=== PATIENT | female | born 1995 | race Caucasian/White ===

== ENCOUNTER 2016-07-10 15:05 | Inpatient (IN) ==
--- NOTE | 2016-07-10 15:39 | Emergency Department Note ---
Disposition Clinical Impression: Suicidal ideation, Depression, Acute anxiety, UTI (urinary tract infection) Disposition: Admitted As Inpatient Referrals: NO,PCP [Primary Care Provider] - Forms: ED Satisfaction Letter General Adult HPI - General Chief complaint: ED Psychiatric Symptoms Stated complaint: SI Time Seen by Provider: 07/10/16 15:38 Source: patient Limitations: no limitations - History of Present Illness HPI Narrative: 21-year-old female with a history of psychiatric disease and previous self- injurious behavior reports the emergency department complaining of suicidality. She has been feeling increasingly anxious and depressed. The patient has not injured herself in any way in the last several days, there is no history of attempted overdose. She reports she was "living with an older man" and he kept her isolated. There is no history of physical abuse. The patient denies acute chest pain shortness of breath abdominal pain vomiting or diarrhea there has been no trouble walking talking hearing seeing or speaking no back pain neck stiffness rash fever or headache. The patient has a previous psychiatric history and has cut herself before. There is no history of recent cutting. The patient denies acute physical complaints. The patient's mother is here and corroborates the psychiatric history. Onset (ago): day(s) Pain Scale: 0 - Related Data Home Medications Medication Instructions Recorded Confirmed No Known Home Drugs 07/02/16 07/02/16 Allergies Allergy/AdvReac Type Severity Reaction Status Date / Time Amoxicillin Allergy Anaphylaxis Verified 05/12/16 19:37 Penicillins [PCN] Allergy Anaphylaxis Verified 09/28/15 20:52 All systems ED: reviewed and negative except as stated. Past Medical History - Past Medical History Medical history: Reports: asthma, seizures, other Surgical history: Reports: other (Cyst excision) Psychiatric history: Reports: anxiety, bipolar, PTSD, prior suicide attempt, previous psychiatric hospitalization [facility] history: Reports: no [facility] history, other - Social History Smoking Status: Never smoker Smokeless Tobacco Status: No Alcohol use: Reports: occasionally Drug use: Reports: none Physical Exam - General Limitations: no limitations General appearance: alert - Head Head exam: atraumatic, normocephalic, normal inspection - Eye Eye exam: Present: normal appearance, PERRL, EOMI. Absent: miosis, mydriasis - ENT ENT exam: normal exam, normal oropharynx, mucous membranes moist, normal external ear exam - Neck Neck exam: Present: normal inspection, full ROM, trachea midline. Absent: tenderness - Chest Chest inspection: Present: symmetric chest wall rise. Absent: tenderness - Respiratory Respiratory exam: Present: normal lung sounds bilaterally. Absent: respiratory distress - Cardiovascular Cardiovascular exam: Present: regular rate, normal rhythm, normal heart sounds - Abdominal Exam Abdominal exam: Present: soft, Non-Tender. Absent: tenderness, distention, guarding, rebound, rigidity, trauma - Extremities Exam Extremities exam: Present: normal inspection, full ROM, normal capillary refill , other (Lower extremities without evidence of acute trauma for range of motion throughout warm and well perfused. Upper extremities show a full range of motion throughout with evidence of acute trauma however chronic scarring right upper extremity in the forearm region. No acute disease. All extremities are warm and well perfused and showed no evidence of neurovascular or neuromuscular compromise.). Absent: tenderness, pedal edema, joint swelling, calf tenderness - Expanded Lower Extremity Exam Hip/Pelvis exam: Present: full ROM. Absent: tenderness Upper leg exam: Present: full ROM. Absent: tenderness Knee exam: Present: full ROM. Absent: tenderness Lower leg exam: Present: full ROM. Absent: tenderness Ankle exam: Present: full ROM. Absent: tenderness Course Vital Signs Temperature 97.7 F 07/10/16 15:13 Pulse Rate 94 07/10/16 15:13 Respiratory Rate 18 07/10/16 15:13 Blood Pressure 103/64 07/10/16 15:13 O2 Sat by Pulse Oximetry 100 07/10/16 15:13 Temperature 97.7 F 07/10/16 15:13 Pulse Rate 94 07/10/16 15:13 Respiratory Rate 18 07/10/16 15:13 Blood Pressure 103/64 07/10/16 15:13 O2 Sat by Pulse Oximetry 100 07/10/16 15:13 Oxygen Delivery Oxygen Delivery Room Air Medical Decision Making - [facility] Narrative Medical decision making narrative: The patient is apparently suicidal, she has a history of psychiatric disease and describes anxiety and depression. Based on her statements and concerns I have consulted the psychiatric service for evaluation and potential admission. She seems to have a low-grade UTI. Keflex was given by mouth. The psychiatric counselors recommended admission to the psychiatric unit. They request we fill out a pink slip. - Lab Data Lab results reviewed: Yes I reviewed the patient's lab results. Result diagrams: 07/10/16 16:00 07/10/16 16:00 Lab Results 07/10/16 07/10/16 07/10/16 Range/Units 15:50 15:50 16:00 WBC 9.0 (4.3-11.1) K/mcL RBC 4.63 (3.82-4.97) M/mcL Hgb 13.3 (11.5-15.4) g/dL Hct 39.2 (35.3-44.9) % MCV 84.7 (83.0-100.0) fL MCH 28.7 (28.0-33.3) pg MCHC 33.9 (31.6-35.5) g/dL RDW 13.3 (11.5-14.5) % Plt Count 379 (140-400) K/mcL MPV 9.6 (9.4-12.4) fL Immature Gran % 0.8 (0-4) % Seg Neutrophils % 71.9 % Lymphocytes % 23.5 % Monocytes % 2.5 % Eosinophils % 1.0 % Basophils % 0.3 % Neutrophils # 6.5 (1.6-8.9) K/mcL Lymphocytes # 2.1 (0.6-4.6) K/mcL Monocytes # 0.2 (0.0-1.3) K/mcL Eosinophils # 0.1 (0.0-0.6) K/mcL Basophils # 0.0 (0.0-0.2) K/mcL Immature Plt Fraction 2.1 (1.1-6.1) % Sodium (136-145) mEq/L Potassium (3.5-4.5) mEq/L Chloride (98-109) mEq/L Carbon Dioxide (19-29) mEq/L BUN (7-20) mg/dL Creatinine (0.57-1.11) mg/dL Est GFR ( Amer) (> 60) Est GFR (Non-Af Amer) (> 60) BUN/Creatinine Ratio (6-26) Glucose (70-99) mg/dL Calculated Osmolality (280-300) Calcium (8.6-10.8) mg/dL Urine Color Yellow (Yellow) Urine Clarity Cloudy A (Clear) Urine pH 6.5 (5.0-8.0) pH Units Ur Specific [place] 1.006 L (1.010-1.025) Urine Protein Negative (Neg-Trace) mg/dL Urine Glucose (UA) Normal (Normal) mg/dL Urine Ketones Negative (Negative) mg/dL Urine Blood Trace H (Negative) Urine Nitrite Negative (Negative) Urine Bilirubin Negative (Negative) Urine Urobilinogen Normal (Normal) mg/dL Ur Leukocyte Esterase Small H (Negative) Urine Microscopic RBC 5-15 H (0-3) per hpf Urine Microscopic WBC 5-15 H (0-3) per hpf Ur Squamous Epith Cells Many H (None-Few) per lpf Urine Bacteria Few (None-Few) per hpf Hyaline Casts None Seen (None-Few) per lpf Salicylates (15-30) mg/dL Urine Opiates Screen Negative (Gclbyc=165) ng/mL Acetaminophen (10-30) mcg/mL Ur Barbiturates Screen Negative (Hpskvu=201) ng/mL Ur Phencyclidine Scrn Negative (Cutoff=25) ng/mL Ur Amphetamines Screen Negative (Nxeudg=4677) ng/mL U Benzodiazepines Scrn Negative (Ovwfep=992) ng/mL Urine Cocaine Screen Negative (Cutoff= 300) ng/mL U Marijuana (THC) Screen Negative (Cutoff = 50) ng/mL Ethyl Alcohol (0-10) mg/dL 07/10/16 Range/Units 16:00 WBC (4.3-11.1) K/mcL RBC (3.82-4.97) M/mcL Hgb (11.5-15.4) g/dL Hct (35.3-44.9) % MCV (83.0-100.0) fL MCH (28.0-33.3) pg MCHC (31.6-35.5) g/dL RDW (11.5-14.5) % Plt Count (140-400) K/mcL MPV (9.4-12.4) fL Immature Gran % (0-4) % Seg Neutrophils % % Lymphocytes % % Monocytes % % Eosinophils % % Basophils % % Neutrophils # (1.6-8.9) K/mcL Lymphocytes # (0.6-4.6) K/mcL Monocytes # (0.0-1.3) K/mcL Eosinophils # (0.0-0.6) K/mcL Basophils # (0.0-0.2) K/mcL Immature Plt Fraction (1.1-6.1) % Sodium 136 (136-145) mEq/L Potassium 3.7 (3.5-4.5) mEq/L Chloride 109 (98-109) mEq/L Carbon Dioxide 16 L (19-29) mEq/L BUN 7 (7-20) mg/dL Creatinine 0.67 (0.57-1.11) mg/dL Est GFR ( Amer) > 60 (> 60) Est GFR (Non-Af Amer) > 60 (> 60) BUN/Creatinine Ratio 10 (6-26) Glucose 109 H (70-99) mg/dL Calculated Osmolality 281 (280-300) Calcium 9.2 (8.6-10.8) mg/dL Urine Color (Yellow) Urine Clarity (Clear) Urine pH (5.0-8.0) pH Units Ur Specific [place] (1.010-1.025) Urine Protein (Neg-Trace) mg/dL Urine Glucose (UA) (Normal) mg/dL Urine Ketones (Negative) mg/dL Urine Blood (Negative) Urine Nitrite (Negative) Urine Bilirubin (Negative) Urine Urobilinogen (Normal) mg/dL Ur Leukocyte Esterase (Negative) Urine Microscopic RBC (0-3) per hpf Urine Microscopic WBC (0-3) per hpf Ur Squamous Epith Cells (None-Few) per lpf Urine Bacteria (None-Few) per hpf Hyaline Casts (None-Few) per lpf Salicylates < 5.0 L (15-30) mg/dL Urine Opiates Screen (Ksfnqn=755) ng/mL Acetaminophen < 1.0 L (10-30) mcg/mL Ur Barbiturates Screen (Simmin=806) ng/mL Ur Phencyclidine Scrn (Cutoff=25) ng/mL Ur Amphetamines Screen (Qescdj=2407) ng/mL U Benzodiazepines Scrn (Polcly=045) ng/mL Urine Cocaine Screen (Cutoff= 300) ng/mL U Marijuana (THC) Screen (Cutoff = 50) ng/mL Ethyl Alcohol < 10 (0-10) mg/dL
[2016-07-10 16:03] LABS: Bilirubin,Urine Negative (Negative); Blood,Urine Trace (Negative); Clarity,Urine Cloudy (Clear); Color,Urine Yellow (Yellow); Glucose,Urine (UA) Normal (Normal); Ketones,Urine Negative (Negative); Leukocyte Esterase,Urine Small (Negative); Nitrite,Urine Negative (Negative); PH,Urine 6.5 pH Units (5.0-8.0); Protein,Urine Negative (Neg-Trace); Specific Gravity,Urine 1.006 (1.010-1.025); Urobilinogen,Urine Normal (Normal)
[2016-07-10 16:05] LABS: Amphetamine Screen,Urine Negative ng/mL (Cutoff=1000); Barbiturate Screen,Urine Negative ng/mL (Cutoff=200); Benzodiazepines Screen,Urine Negative ng/mL (Cutoff=200); Cannabinoid Screen,Urine Negative ng/mL (Cutoff = 50); Cocaine Screen,Urine Negative ng/mL (Cutoff= 300); Opiate Screen,Urine Negative ng/mL (Cutoff=300); Phencyclidine Screen,Urine Negative ng/mL (Cutoff=25)
[2016-07-10 16:06] LABS: Bacteria,Urine Few per hpf (None-Few); Hyaline Casts,Urine None Seen per lpf (None-Few); Squamous Epithelial Cell,Urine Many per lpf (None-Few)
[2016-07-10 16:07] LABS: Basophils % 0.3 %; Eosinophils # 0.1 K/mcL (0.0-0.6); Hematocrit 39.2 % (35.3-44.9); Hemoglobin 13.3 g/dL (11.5-15.4); Immature Granulocytes % 0.8 % (0-4); Immature Platelets 2.1 % (1.1-6.1); Lymphocytes # 2.1 K/mcL (0.6-4.6); Lymphocytes % 23.5 %; Mean Corpuscular HGB Conc 33.9 g/dL (31.6-35.5); Mean Corpuscular Hemoglobin 28.7 pg (28.0-33.3); Mean Corpuscular Volume 84.7 fL (83.0-100.0); Mean Platelet Volume 9.6 fL (9.4-12.4); Monocytes # 0.2 K/mcL (0.0-1.3); Monocytes % 2.5 %; Neutrophils # 6.5 K/mcL (1.6-8.9); Platelet Count 379 K/mcL (140-400); Red Blood Count 4.63 M/mcL (3.82-4.97); Red Cell Distribution Width 13.3 % (11.5-14.5); Segmented Neutrophils % 71.9 %
[2016-07-10 16:20] LABS: Acetaminophen < 1.0 mcg/mL (10-30); BUN/Creatinine Ratio 10 (6-26); Blood Urea Nitrogen 7 mg/dL (7-20); Calcium 9.2 mg/dL (8.6-10.8); Carbon Dioxide 16 mEq/L (19-29); Chloride 109 mEq/L (98-109); Ethanol < 10 mg/dL (0-10); Glucose 109 mg/dL (70-99); Osmolality,Calculated 281 (280-300); Potassium 3.7 mEq/L (3.5-4.5); Salicylate < 5.0 mg/dL (15-30); Sodium 136 mEq/L (136-145); eGFR For African Americans > 60 (> 60); eGFR For Non-African Americans > 60 (> 60)
[2016-07-10] MEDS ORDERED: cephALEXin 250 MG CAPSULE PO ONE (16:42)
[2016-07-10] MEDS ORDERED: MOM Conc 10 ML UD.LIQ PO PRN (18:43)
[2016-07-10] MEDS ORDERED: Haloperidol Lactate 5 MG/ML VIAL IM PRN (18:43)
[2016-07-10] MEDS ORDERED: *HR* LORazepam 2 MG/ML VIAL IM PRN (18:43)
[2016-07-10] MEDS ORDERED: *HR* LORazepam 1 MG TABLET PO PRN (18:43)
[2016-07-10] MEDS ORDERED: Mag Hydrox/Al Hydrox/Simeth 30 ML UDC PO PRN (18:43)
[2016-07-10] MEDS: Acetaminophen 325 MG TABLET PO PRN (21:47)
[2016-07-10] MEDS: traZODone 50 MG TABLET PO PRN (21:47)
--- NOTE | 2016-07-11 10:06 | Psychiatry History & Physical ---
Date of Encounter: 07/11/16 Time of Encounter: 10:04 History of Present Illness Patient Stated Chief Complaint: suicidal Medicare Admission Attestation: For traditional Medicare patients the provided hospital inpatient services are reasonable and necessary and in the case of services not specified as inpatient -only under 42 CFR 419.22 (n), that they are appropriately provided as inpatient services in accordance 42 CFR 412.3. For Critical Access Hospital the patient may reasonably be expected to be discharged or transferred to a hospital within 96 hours after admission to the Critical Access Hospital. Admitted From: Emergency Dept History of Present Illness: Ms. Ricketts is a 21 year old female Past Med Surg Social Fam HX - Past Medical History Medical history: asthma, seizures, other - Past Psychiatric History Psychiatric history: Reports: no psych history Family psychiatric history: Unknown Family History of Suicide: Unknown - Past Surgical History Surgical History: other - Social History Smoking Status: Never smoker Smokeless Tobacco Status: No Alcohol use: occasionally Drug use: none Medications & Allergies Albuterol Sulfate [Ventolin Hfa] 2 puff IH Q6H PRN 07/10/16 [History] Doxycycline 100 mg PO BID 07/10/16 [History] Topiramate [Topiramate] 50 mg PO HS 07/10/16 [History] Allergies Amoxicillin Allergy (Verified 05/12/16 19:37) Anaphylaxis Penicillins [PCN] Allergy (Verified 09/28/15 20:52) Anaphylaxis Review of Systems Psychiatric: Reports: depression, anxiety, abnormal sleep pattern, suicidal ideation, hopelessness, irritability Mental Status Exam Patient orientation: Yes Person, Yes Time, Yes Place Level of alertness: Alert Patient appearance: Appropriate, Well Groomed, Well-nourished Behavior: calm, cooperative, anxious, withdrawn Psychomotor activity: Slowed Eye contact: Minimal Contact Mood description: Depressed, Anxious, Irritable Affect description: constricted, dysphoric, anxious Speech pattern: Normal rate, Appropriate, Clear, Limited Speech volume: Normal Thought process: Intact Thought content: Yes Suicidal ideation Perceptual disturbances: No Auditory hallucinations, No Visual hallucinations Attention span: Capable of Focused Attention Memory description: Grossly Intact Patient reliability: Reliable Historian Intelligence estimate: Average Judgment: Fair Insight: Partial Results - Vital Signs Vital signs: Temp Pulse Resp BP Pulse Ox 98.1 F 91 20 106/62 100 07/11/16 08:25 07/11/16 08:25 07/11/16 08:25 07/11/16 08:25 07/10/16 15:13 - Labs Labs: Laboratory Last Values WBC 9.0 K/mcL (4.3-11.1) 07/10/16 16:00 RBC 4.63 M/mcL (3.82-4.97) 07/10/16 16:00 Hgb 13.3 g/dL (11.5-15.4) 07/10/16 16:00 Hct 39.2 % (35.3-44.9) 07/10/16 16:00 MCV 84.7 fL (83.0-100.0) 07/10/16 16:00 MCH 28.7 pg (28.0-33.3) 07/10/16 16:00 MCHC 33.9 g/dL (31.6-35.5) 07/10/16 16:00 RDW 13.3 % (11.5-14.5) 07/10/16 16:00 Plt Count 379 K/mcL (140-400) 07/10/16 16:00 MPV 9.6 fL (9.4-12.4) 07/10/16 16:00 Immature Gran % 0.8 % (0-4) 07/10/16 16:00 Seg Neutrophils % 71.9 % 07/10/16 16:00 Lymphocytes % 23.5 % 07/10/16 16:00 Monocytes % 2.5 % 07/10/16 16:00 Eosinophils % 1.0 % 07/10/16 16:00 Basophils % 0.3 % 07/10/16 16:00 Neutrophils # 6.5 K/mcL (1.6-8.9) 07/10/16 16:00 Lymphocytes # 2.1 K/mcL (0.6-4.6) 07/10/16 16:00 Monocytes # 0.2 K/mcL (0.0-1.3) 07/10/16 16:00 Eosinophils # 0.1 K/mcL (0.0-0.6) 07/10/16 16:00 Basophils # 0.0 K/mcL (0.0-0.2) 07/10/16 16:00 Immature Plt Fraction 2.1 % (1.1-6.1) 07/10/16 16:00 Sodium 136 mEq/L (136-145) 07/10/16 16:00 Potassium 3.7 mEq/L (3.5-4.5) 07/10/16 16:00 Chloride 109 mEq/L (98-109) 07/10/16 16:00 Carbon Dioxide 16 mEq/L (19-29) L 07/10/16 16:00 BUN 7 mg/dL (7-20) 07/10/16 16:00 Creatinine 0.67 mg/dL (0.57-1.11) 07/10/16 16:00 Est GFR ( Amer) > 60 (> 60) 07/10/16 16:00 Est GFR (Non-Af Amer) > 60 (> 60) 07/10/16 16:00 BUN/Creatinine Ratio 10 (6-26) 07/10/16 16:00 Glucose 109 mg/dL (70-99) H 07/10/16 16:00 Calculated Osmolality 281 (280-300) 07/10/16 16:00 Calcium 9.2 mg/dL (8.6-10.8) 07/10/16 16:00 Urine Color Yellow (Yellow) 07/10/16 15:50 Urine Clarity Cloudy (Clear) A 07/10/16 15:50 Urine pH 6.5 pH Units (5.0-8.0) 07/10/16 15:50 Ur Specific [place] 1.006 (1.010-1.025) L 07/10/16 15:50 Urine Protein Negative mg/dL (Neg-Trace) 07/10/16 15:50 Urine Glucose (UA) Normal mg/dL (Normal) 07/10/16 15:50 Urine Ketones Negative mg/dL (Negative) 07/10/16 15:50 Urine Blood Trace (Negative) H 07/10/16 15:50 Urine Nitrite Negative (Negative) 07/10/16 15:50 Urine Bilirubin Negative (Negative) 07/10/16 15:50 Urine Urobilinogen Normal mg/dL (Normal) 07/10/16 15:50 Ur Leukocyte Esterase Small (Negative) H 07/10/16 15:50 Urine Microscopic RBC 5-15 per hpf (0-3) H 07/10/16 15:50 Urine Microscopic WBC 5-15 per hpf (0-3) H 07/10/16 15:50 Ur Squamous Epith Cells Many per lpf (None-Few) H 07/10/16 15:50 Urine Bacteria Few per hpf (None-Few) 07/10/16 15:50 Hyaline Casts None Seen per lpf (None-Few) 07/10/16 15:50 Salicylates < 5.0 mg/dL (15-30) L 07/10/16 16:00 Urine Opiates Screen Negative ng/mL (Xeoqbq=985) 07/10/16 15:50 Acetaminophen < 1.0 mcg/mL (10-30) L 07/10/16 16:00 Ur Barbiturates Screen Negative ng/mL (Unayla=748) 07/10/16 15:50 Ur Phencyclidine Scrn Negative ng/mL (Cutoff=25) 07/10/16 15:50 Ur Amphetamines Screen Negative ng/mL (Ouizms=0521) 07/10/16 15:50 U Benzodiazepines Scrn Negative ng/mL (Iajfmu=066) 07/10/16 15:50 Urine Cocaine Screen Negative ng/mL (Cutoff= 300) 07/10/16 15:50 U Marijuana (THC) Screen Negative ng/mL (Cutoff = 50) 07/10/16 15:50 Ethyl Alcohol < 10 mg/dL (0-10) 07/10/16 16:00 Assessment and Plan (1) Depression Current visit: Yes Status: Acute Plan: Admit inpatient for safety and stabilization, Close observation, Suicide Precautions per unit protocol, Encourage participation in unit milieu, Group Therapy, Monitor sleep, Monitor appetite Risks, benefits, side effects, alternatives discussed w/pt: Yes Patient agreeable to treatment: Yes Estimated Length of Stay (Days): 5 Qualifiers: Depression Type: major depressive disorder Major depression recurrence: recurrent Active/Remission status: currently active Major depression episode severity: moderate Qualified Code(s): F33.1 - Major depressive disorder, recurrent, moderate
[2016-07-11] MEDS: Venlafaxine XR (24 HR) 75 MG CAP.ER.24H PO SCH (10:39)
[2016-07-11] MEDS: Acetaminophen 325 MG TABLET PO PRN (11:33)
[2016-07-11] MEDS ORDERED: *HR* LORazepam 1 MG TABLET PO PRN (12:23)
[2016-07-11] MEDS: levETIRAcetam 250 MG TABLET PO SCH ×2 (12:36→21:51)
[2016-07-11] MEDS: Topiramate 25 MG TABLET PO SCH (21:51)
[2016-07-11] MEDS: traZODone 50 MG TABLET PO PRN (21:51)
[2016-07-11] MEDS: *HR* LORazepam 1 MG TABLET PO PRN (23:11)
[2016-07-12] MEDS: levETIRAcetam 250 MG TABLET PO SCH ×2 (08:54→21:33)
[2016-07-12] MEDS: Venlafaxine XR (24 HR) 75 MG CAP.ER.24H PO SCH (08:55)
--- NOTE | 2016-07-12 12:57 | Psychiatry Progress Note ---
Date of Encounter: 07/12/16 Time of Encounter: 12:53 Subjective Interval history: Patient is here for follow-up. Nursing staff reported that she denying suicidal ideation or sleep improved she still complaining of anxiety and she used lorazepam was "results. She is participating in groups and activities and her medication were reviewed and restarted especially seizure medication. She is more optimistic affect still restricted she is asking question about medication and showing interest in treatment. Review of Systems Psychiatric: Reports: depression, anxiety, abnormal sleep pattern, irritability Objective: Exam Patient orientation: Yes Person, Yes Time, Yes Place Level of alertness: Alert Patient appearance: Appropriate, Well Groomed, Well-nourished Behavior: calm, cooperative, anxious, withdrawn Psychomotor activity: Slowed Eye contact: Maintains Eye Contact Mood description: Depressed, Anxious, Irritable Affect description: constricted, dysphoric, anxious Speech pattern: Normal rate, Appropriate, Clear, Limited Speech volume: Normal Thought process: Intact Thought content: No Suicidal ideation Perceptual disturbances: No Auditory hallucinations, No Visual hallucinations Judgment: Fair Insight: Partial Results - Vital Signs Vital Signs: Temp Pulse Resp BP Pulse Ox 98.8 F 80 16 106/63 100 07/12/16 08:44 07/12/16 08:44 07/12/16 08:44 07/12/16 08:44 07/10/16 15:13 Assessment and Plan (1) Depression Current visit: Yes Status: Acute Risks, benefits, side effects, alternatives discussed w/pt: Yes Patient agreeable to treatment: Yes Qualifiers: Depression Type: major depressive disorder Major depression recurrence: recurrent Active/Remission status: currently active Major depression episode severity: moderate Qualified Code(s): F33.1 - Major depressive disorder, recurrent, moderate (2) Suicidal ideation Current visit: Yes Status: Acute Plan: Continue hospitalization, Close observation, Suicide Precautions per unit protocol, Encourage participation in unit milieu, Group Therapy, Monitor sleep, Monitor appetite Risks, benefits, side effects, alternatives discussed w/pt: Yes Patient agreeable to treatment: Yes Consult Discharge Plan - Plan Referrals: NO,PCP [Primary Care Provider] -
[2016-07-12] MEDS: *HR* LORazepam 1 MG TABLET PO PRN ×2 (13:23→21:33)
[2016-07-12] MEDS: Topiramate 25 MG TABLET PO SCH (21:32)
[2016-07-12] MEDS: traZODone 50 MG TABLET PO PRN (21:33)
[2016-07-13] MEDS: levETIRAcetam 250 MG TABLET PO SCH ×2 (08:27→22:07)
[2016-07-13] MEDS: Venlafaxine XR (24 HR) 75 MG CAP.ER.24H PO SCH (08:27)
--- NOTE | 2016-07-13 09:49 | Psychiatry Progress Note ---
Date of Encounter: 07/13/16 Time of Encounter: 09:43 Subjective Interval history: Patient is here for follow-up. Nursing staff reports she is taking her medication and ask for lorazepam for anxiety was good response to socializing with other patients and participating in groups she is denying suicidal ideation and tolerating medications without any complaints. Review of Systems Psychiatric: Reports: depression, anxiety, abnormal sleep pattern, visual hallucinations, irritability Objective: Exam Patient orientation: Yes Person, Yes Time, Yes Place Level of alertness: Alert Patient appearance: Appropriate, Well Groomed, Well-nourished Behavior: calm, cooperative, anxious, tearful, withdrawn Psychomotor activity: Slowed Eye contact: Maintains Eye Contact Mood description: Depressed, Anxious, Irritable Affect description: constricted, dysphoric, anxious Speech pattern: Normal rate, Appropriate, Clear, Limited Speech volume: Normal Thought process: Intact Thought content: No Suicidal ideation Perceptual disturbances: No Auditory hallucinations, No Visual hallucinations Judgment: Fair Insight: Partial Results - Vital Signs Vital Signs: Temp Pulse Resp BP Pulse Ox 98 F 103 18 109/72 100 07/13/16 08:23 07/13/16 08:23 07/13/16 08:23 07/13/16 08:23 07/10/16 15:13 Assessment and Plan (1) Depression Current visit: Yes Status: Acute Plan: Continue hospitalization, Close observation, Suicide Precautions per unit protocol, Encourage participation in unit milieu, Group Therapy, Monitor sleep, Monitor appetite Risks, benefits, side effects, alternatives discussed w/pt: Yes Patient agreeable to treatment: Yes Qualifiers: Depression Type: major depressive disorder Major depression recurrence: recurrent Active/Remission status: currently active Major depression episode severity: moderate Qualified Code(s): F33.1 - Major depressive disorder, recurrent, moderate (2) Suicidal ideation Current visit: Yes Status: Acute Plan: Continue hospitalization, Close observation, Suicide Precautions per unit protocol, Encourage participation in unit milieu, Group Therapy, Monitor sleep, Monitor appetite Risks, benefits, side effects, alternatives discussed w/pt: Yes Patient agreeable to treatment: Yes Consult Discharge Plan - Plan Referrals: [facility] [Outside] - 08/09/16 2:00 pm (The above appointment is with,Dr. James, psychiatric prescriber. Office staff will contact you directly to schedule your intake appointment for counseling and case management services. Please arrive 15 minutes early for your psychiatric prescriber appointment to complete paperwork. You may contact the office regularly to check for cancellations that may allow you to be seen sooner by the psychiatric prescriber.)
[2016-07-13] MEDS: *HR* LORazepam 1 MG TABLET PO PRN ×2 (10:25→22:57)
[2016-07-13] MEDS: risperiDONE 0.25 MG TABLET PO SCH (10:25)
[2016-07-13] MEDS: traZODone 50 MG TABLET PO PRN (22:08)
[2016-07-13] MEDS: Topiramate 25 MG TABLET PO SCH (22:08)
[2016-07-14] MEDS: risperiDONE 0.25 MG TABLET PO SCH (08:50)
[2016-07-14] MEDS: Venlafaxine XR (24 HR) 75 MG CAP.ER.24H PO SCH (08:50)
[2016-07-14] MEDS: levETIRAcetam 250 MG TABLET PO SCH ×2 (08:50→21:00)
--- NOTE | 2016-07-14 11:42 | Psychiatry Progress Note ---
Date of Encounter: 07/14/16 Time of Encounter: 11:38 Subjective Interval history: Patient is here for follow-up. She suffered patient is compliant with medication she is socializing with patient she reports her sleep improved after adding risperidone but continued to report having dreams or nightmares or flashbacks. She is denying any suicidal ideation and continued to complain of anxiety and demand medication for.. Discussed was her increasing his Risperdal to 1 mg at bedtime to address her nightmares or flashbacks she is agreeable and we will continue to monitor her response. Review of Systems Psychiatric: Reports: depression, anxiety, abnormal sleep pattern, visual hallucinations, irritability Objective: Exam Patient orientation: Yes Person, Yes Time, Yes Place Level of alertness: Alert Patient appearance: Appropriate, Well Groomed, Well-nourished Behavior: calm, cooperative, anxious, tearful, withdrawn Psychomotor activity: Slowed Eye contact: Maintains Eye Contact Mood description: Depressed, Anxious, Irritable Affect description: constricted, dysphoric, anxious Speech pattern: Normal rate, Appropriate, Clear, Limited Speech volume: Normal Thought process: Intact Thought content: No Suicidal ideation Perceptual disturbances: No Auditory hallucinations, Yes Visual hallucinations Judgment: Fair Insight: Partial Results - Vital Signs Vital Signs: Temp Pulse Resp BP Pulse Ox 98.6 F 90 16 108/72 100 07/13/16 20:48 07/13/16 20:48 07/13/16 20:48 07/13/16 20:48 07/10/16 15:13 Assessment and Plan (1) Depression Current visit: Yes Status: Acute Plan: Continue hospitalization, Close observation, Suicide Precautions per unit protocol, Encourage participation in unit milieu, Group Therapy, Monitor sleep, Monitor appetite Additional Plan: We will increase Risperdal to 1 mg at bedtime. Risks, benefits, side effects, alternatives discussed w/pt: Yes Patient agreeable to treatment: Yes Qualifiers: Depression Type: major depressive disorder Major depression recurrence: recurrent Active/Remission status: currently active Major depression episode severity: moderate Qualified Code(s): F33.1 - Major depressive disorder, recurrent, moderate (2) Suicidal ideation Current visit: Yes Status: Acute Plan: Continue hospitalization, Close observation, Suicide Precautions per unit protocol, Encourage participation in unit milieu, Group Therapy, Monitor sleep, Monitor appetite Risks, benefits, side effects, alternatives discussed w/pt: Yes Patient agreeable to treatment: Yes Consult Discharge Plan - Plan Referrals: [facility] [Outside] - 08/09/16 2:00 pm (The above appointment is with, Dr. James, psychiatric prescriber. Office staff will contact you directly to schedule your intake appointment for counseling and case management services. Please arrive 15 minutes early for your psychiatric prescriber appointment to complete paperwork. You may contact the office regularly to check for cancellations that may allow you to be seen sooner by the psychiatric prescriber.)
[2016-07-14] MEDS: traZODone 50 MG TABLET PO PRN (21:01)
[2016-07-14] MEDS: risperiDONE 1 MG TABLET PO SCH (21:01)
[2016-07-14] MEDS: Topiramate 25 MG TABLET PO SCH (21:01)
[2016-07-15] MEDS: levETIRAcetam 250 MG TABLET PO SCH ×2 (08:19→20:40)
[2016-07-15] MEDS: Venlafaxine XR (24 HR) 75 MG CAP.ER.24H PO SCH (08:19)
[2016-07-15] MEDS: risperiDONE 0.25 MG TABLET PO SCH (08:19)
--- NOTE | 2016-07-15 12:39 | Psychiatry Progress Note ---
Date of Encounter: 07/15/16 Time of Encounter: 12:37 Subjective Interval history: Patient is here for follow-up. Nursing staff report patient is participating in activities and denying suicidal ideation compliant with medication. Discharge plans are ongoing and patient is trying to choose best option. She reports sleep improving and less nightmares. No seizure activity were reported. Review of Systems Psychiatric: Reports: depression, anxiety, abnormal sleep pattern, visual hallucinations Objective: Exam Patient orientation: Yes Person, Yes Time, Yes Place Level of alertness: Alert Patient appearance: Appropriate, Well Groomed, Well-nourished Behavior: calm, cooperative, anxious, tearful, withdrawn Psychomotor activity: Normal Eye contact: Maintains Eye Contact Mood description: Depressed, Anxious, Irritable Affect description: constricted, dysphoric, anxious Speech pattern: Normal rate, Appropriate, Clear, Limited Speech volume: Normal Thought process: Intact Thought content: No Suicidal ideation Perceptual disturbances: No Auditory hallucinations, Yes Visual hallucinations Judgment: Fair Insight: Partial Results - Vital Signs Vital Signs: Temp Pulse Resp BP Pulse Ox 98.0 F 83 16 95/57 100 07/15/16 09:00 07/15/16 09:00 07/15/16 09:00 07/15/16 09:00 07/10/16 15:13 Assessment and Plan (1) Depression Current visit: Yes Status: Acute Plan: Continue hospitalization, Close observation, Suicide Precautions per unit protocol, Encourage participation in unit milieu, Group Therapy, Monitor sleep, Monitor appetite Risks, benefits, side effects, alternatives discussed w/pt: Yes Patient agreeable to treatment: Yes Qualifiers: Depression Type: major depressive disorder Major depression recurrence: recurrent Active/Remission status: currently active Major depression episode severity: moderate Qualified Code(s): F33.1 - Major depressive disorder, recurrent, moderate (2) Suicidal ideation Current visit: Yes Status: Acute Plan: Continue hospitalization, Close observation, Suicide Precautions per unit protocol, Encourage participation in unit milieu, Group Therapy, Monitor sleep, Monitor appetite Risks, benefits, side effects, alternatives discussed w/pt: Yes Patient agreeable to treatment: Yes Consult Discharge Plan - Plan Referrals: [facility] [Outside] - 08/09/16 2:00 pm (Your counselor, Berenice , will contact you directly after to discharge to set your next appointment. The above appointment is with, Dr. James, psychiatric prescriber. Please arrive 15 minutes early for your psychiatric prescriber appointment to complete paperwork. You may contact the office regularly to check for cancellations that may allow you to be seen sooner by the psychiatric prescriber.)
[2016-07-15] MEDS: Topiramate 25 MG TABLET PO SCH (20:39)
[2016-07-15] MEDS: risperiDONE 1 MG TABLET PO SCH (20:40)
[2016-07-15] MEDS: traZODone 50 MG TABLET PO PRN (20:40)
[2016-07-16] MEDS: risperiDONE 0.25 MG TABLET PO SCH (08:09)
[2016-07-16] MEDS: levETIRAcetam 250 MG TABLET PO SCH (08:09)
[2016-07-16] MEDS: Venlafaxine XR (24 HR) 75 MG CAP.ER.24H PO SCH (08:10)
[2016-07-16] MEDS: Acetaminophen 325 MG TABLET PO PRN (08:10)
[2016-07-16 08:13] VITALS: BP 115/71
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
== END 2016-07-16 10:44 | disposition home or self-care (01) | DRG 751 ==
LOC: EMEROO 15:05 → 1ANU 18:40
PROVIDERS: ADMIT Psychiatry & Neurology Psychiatry; ATTEND Psychiatry & Neurology Psychiatry

== ENCOUNTER 2016-08-09 16:37 | Inpatient (IN) ==
--- NOTE | 2016-08-09 16:48 | Emergency Department Note ---
Disposition Clinical Impression: Psychiatric disorder Disposition: Admitted As Inpatient Condition: Fair General Adult HPI - General Chief complaint: ED Psychiatric Symptoms Stated complaint: SI attempt Time Seen by Provider: 08/09/16 16:44 - Related Data Home Medications Medication Instructions Recorded Confirmed Albuterol Sulfate [Ventolin Hfa] 2 puff IH Q4H PRN 07/10/16 08/09/16 Doxycycline 100 mg PO BID 07/10/16 08/09/16 ClonazePAM [Klonopin] 0.5 mg PO TID 08/09/16 08/09/16 Hydroxyzine HCl 50 mg PO Q8H PRN 08/09/16 08/09/16 LevETIRAcetam [Keppra] 500 mg PO BID 08/09/16 08/09/16 Mirtazapine [Remeron] 15 mg PO HS 08/09/16 08/09/16 Mupirocin [Bactroban Oint] 1 appl TP TID 08/09/16 08/09/16 Phenytoin ER [Dilantin ER] 100 mg PO TID 08/09/16 08/09/16 Previous Rx's Medication Instructions Recorded RisperiDONE [RisperDAL] 1 mg PO HS #30 tablet 07/16/16 Topiramate 50 mg PO HS #30 tablet 07/16/16 TraZODone 50 mg PO HS PRN #30 tablet 07/16/16 Venlafaxine XR (24 HR) [Effexor XR] 75 mg PO DAILY #30 cap.er.24h 07/16/16 Allergies Allergy/AdvReac Type Severity Reaction Status Date / Time Amoxicillin Allergy Anaphylaxis Verified 05/12/16 19:37 Penicillins [PCN] Allergy Anaphylaxis Verified 09/28/15 20:52 Past Medical History - Past Medical History Medical history: Reports: asthma, seizures, other Surgical history: Reports: other Psychiatric history: Reports: no psych history 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 - Social History Smoking Status: Never smoker Smokeless Tobacco Status: No Alcohol use: Reports: occasionally Drug use: Reports: none Course Vital Signs Temperature 98.4 F 08/09/16 16:47 Pulse Rate 96 08/09/16 16:47 Respiratory Rate 16 08/09/16 16:47 Blood Pressure 121/80 08/09/16 16:47 O2 Sat by Pulse Oximetry 99 08/09/16 16:47 Temperature 98.4 F 08/09/16 21:00 Pulse Rate 98 08/09/16 21:00 Respiratory Rate 16 08/09/16 21:00 Blood Pressure 141/104 08/09/16 21:00 O2 Sat by Pulse Oximetry 100 08/09/16 18:02 Oxygen Delivery Oxygen Delivery Room Air Medical Decision Making - Lab Data Result diagrams: 08/09/16 17:10 08/09/16 17:10 Lab Results 08/09/16 08/09/16 08/09/16 Range/Units 16:58 16:58 17:10 WBC 12.2 H (4.3-11.1) K/mcL RBC 4.55 (3.82-4.97) M/mcL Hgb 13.1 (11.5-15.4) g/dL Hct 38.7 (35.3-44.9) % MCV 85.1 (83.0-100.0) fL MCH 28.8 (28.0-33.3) pg MCHC 33.9 (31.6-35.5) g/dL RDW 14.0 (11.5-14.5) % Plt Count 384 (140-400) K/mcL MPV 8.9 L (9.4-12.4) fL Immature Gran % 0.7 (0-4) % Seg Neutrophils % 62.3 % Lymphocytes % 25.0 % Monocytes % 3.0 % Eosinophils % 8.5 % Basophils % 0.5 % Neutrophils # 7.6 (1.6-8.9) K/mcL Lymphocytes # 3.0 (0.6-4.6) K/mcL Monocytes # 0.4 (0.0-1.3) K/mcL Eosinophils # 1.0 H (0.0-0.6) K/mcL Basophils # 0.1 (0.0-0.2) K/mcL Sodium (136-145) mEq/L Potassium (3.5-4.5) mEq/L Chloride (98-109) mEq/L Carbon Dioxide (19-29) mEq/L BUN (7-20) mg/dL Creatinine (0.57-1.11) mg/dL Est GFR ( Amer) (> 60) Est GFR (Non-Af Amer) (> 60) BUN/Creatinine Ratio (6-26) Glucose (70-99) mg/dL Calculated Osmolality (280-300) Calcium (8.6-10.8) mg/dL Total Bilirubin (0.2-1.2) mg/dL Direct Bilirubin (0.0-0.5) mg/dL Indirect Bilirubin (0.0-1.2) mg/dL AST (5-34) Units/L ALT (0-55) Units/L Alkaline Phosphatase (38-126) Units/L Serum Total Protein (6.0-8.3) g/dL Albumin (3.5-5.0) g/dL Globulin (2.4-3.5) g/dL Albumin/Globulin Ratio (1.1-2.2) Urine Test Negative (Negative) Salicylates (15-30) mg/dL Urine Opiates Screen Negative (Wahavh=507) ng/mL Acetaminophen (10-30) mcg/mL Ur Barbiturates Screen Negative (Jgvlwd=272) ng/mL Ur Phencyclidine Scrn Negative (Cutoff=25) ng/mL Ur Amphetamines Screen Negative (Dgspfm=9565) ng/mL U Benzodiazepines Scrn Negative (Usuwlq=461) ng/mL Urine Cocaine Screen Negative (Cutoff= 300) ng/mL U Marijuana (THC) Screen Negative (Cutoff = 50) ng/mL Ethyl Alcohol (0-10) mg/dL 08/09/16 Range/Units 17:10 WBC (4.3-11.1) K/mcL RBC (3.82-4.97) M/mcL Hgb (11.5-15.4) g/dL Hct (35.3-44.9) % MCV (83.0-100.0) fL MCH (28.0-33.3) pg MCHC (31.6-35.5) g/dL RDW (11.5-14.5) % Plt Count (140-400) K/mcL MPV (9.4-12.4) fL Immature Gran % (0-4) % Seg Neutrophils % % Lymphocytes % % Monocytes % % Eosinophils % % Basophils % % Neutrophils # (1.6-8.9) K/mcL Lymphocytes # (0.6-4.6) K/mcL Monocytes # (0.0-1.3) K/mcL Eosinophils # (0.0-0.6) K/mcL Basophils # (0.0-0.2) K/mcL Sodium 139 (136-145) mEq/L Potassium 4.2 (3.5-4.5) mEq/L Chloride 111 H (98-109) mEq/L Carbon Dioxide 19 (19-29) mEq/L BUN 6 L (7-20) mg/dL Creatinine 0.58 (0.57-1.11) mg/dL Est GFR ( Amer) > 60 (> 60) Est GFR (Non-Af Amer) > 60 (> 60) BUN/Creatinine Ratio 10 (6-26) Glucose 86 (70-99) mg/dL Calculated Osmolality 285 (280-300) Calcium 9.1 (8.6-10.8) mg/dL Total Bilirubin 0.1 L (0.2-1.2) mg/dL Direct Bilirubin 0.1 (0.0-0.5) mg/dL Indirect Bilirubin 0.0 (0.0-1.2) mg/dL AST 18 (5-34) Units/L ALT 21 (0-55) Units/L Alkaline Phosphatase 109 (38-126) Units/L Serum Total Protein 7.3 (6.0-8.3) g/dL Albumin 3.5 (3.5-5.0) g/dL Globulin 3.8 H (2.4-3.5) g/dL Albumin/Globulin Ratio 0.9 L (1.1-2.2) Urine Test (Negative) Salicylates < 5.0 L (15-30) mg/dL Urine Opiates Screen (Gkakzw=845) ng/mL Acetaminophen < 1.0 L (10-30) mcg/mL Ur Barbiturates Screen (Cgputv=978) ng/mL Ur Phencyclidine Scrn (Cutoff=25) ng/mL Ur Amphetamines Screen (Gkdlni=3630) ng/mL U Benzodiazepines Scrn (Tmkpym=138) ng/mL Urine Cocaine Screen (Cutoff= 300) ng/mL U Marijuana (THC) Screen (Cutoff = 50) ng/mL Ethyl Alcohol < 10 (0-10) mg/dL Attestation Statement - Attestation Attestation: I examined this patient and my medical decision-making was reviewed with the PRODUCT LEAD/PA/Advanced Practice Nurse/Resident Physician. I agree with the documented findings, disposition and treatment plan as described except to the extent set forth below. Face to face time provided Patient feels suicidal. She has a history of psychiatric disease. Appears physically in no acute distress. We will attempt to clear medically for behavioral evaluation 18:00: Patient admitted to ingesting approximately 30 tablets of Neurontin- milligrams unknown. Medication did not belong to her. She vomited up the tablets. Ingestion was approximately 4 hours ago. She remains a symptomatically. I did speak with poison control center who was agreeable that the patient can be cleared medically for behavioral evaluation. This information was conveyed to the behavioral consultants
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
[2016-08-09 17:19] LABS: Basophils # 0.1 K/mcL (0.0-0.2); Basophils % 0.5 %; Eosinophils % 8.5 %; Hematocrit 38.7 % (35.3-44.9); Hemoglobin 13.1 g/dL (11.5-15.4); Immature Granulocytes % 0.7 % (0-4); Mean Corpuscular HGB Conc 33.9 g/dL (31.6-35.5); Mean Corpuscular Hemoglobin 28.8 pg (28.0-33.3); Mean Corpuscular Volume 85.1 fL (83.0-100.0); Mean Platelet Volume 8.9 fL (9.4-12.4); Monocytes # 0.4 K/mcL (0.0-1.3); Neutrophils # 7.6 K/mcL (1.6-8.9); Platelet Count 384 K/mcL (140-400); Red Blood Count 4.55 M/mcL (3.82-4.97); Segmented Neutrophils % 62.3 %
[2016-08-09 17:28] LABS: Amphetamine Screen,Urine Negative ng/mL (Cutoff=1000); Barbiturate Screen,Urine Negative ng/mL (Cutoff=200); Benzodiazepines Screen,Urine Negative ng/mL (Cutoff=200); Cannabinoid Screen,Urine Negative ng/mL (Cutoff = 50); Cocaine Screen,Urine Negative ng/mL (Cutoff= 300); Opiate Screen,Urine Negative ng/mL (Cutoff=300); Phencyclidine Screen,Urine Negative ng/mL (Cutoff=25)
[2016-08-09 17:36] LABS: Alanine Aminotransferase 21 Units/L (0-55); Albumin 3.5 g/dL (3.5-5.0); Albumin/Globulin Ratio 0.9 (1.1-2.2); Alkaline Phosphatase 109 Units/L (38-126); Aspartate Amino Transferase 18 Units/L (5-34); BUN/Creatinine Ratio 10 (6-26); Bilirubin,Direct 0.1 mg/dL (0.0-0.5); Bilirubin,Total 0.1 mg/dL (0.2-1.2); Blood Urea Nitrogen 6 mg/dL (7-20); Calcium 9.1 mg/dL (8.6-10.8); Carbon Dioxide 19 mEq/L (19-29); Chloride 111 mEq/L (98-109); Globulin 3.8 g/dL (2.4-3.5); Glucose 86 mg/dL (70-99); Osmolality,Calculated 285 (280-300); Potassium 4.2 mEq/L (3.5-4.5); Sodium 139 mEq/L (136-145); Total Protein 7.3 g/dL (6.0-8.3); eGFR For African Americans > 60 (> 60); eGFR For Non-African Americans > 60 (> 60)
[2016-08-09 17:37] LABS: Acetaminophen < 1.0 mcg/mL (10-30); Ethanol < 10 mg/dL (0-10); Salicylate < 5.0 mg/dL (15-30)
[2016-08-09] MEDS ORDERED: *HR* LORazepam 1 MG TABLET PO ONE (18:35)
[2016-08-09] MEDS ORDERED: *HR* LORazepam 1 MG TABLET PO PRN (19:36)
[2016-08-09] MEDS ORDERED: traZODone 50 MG TABLET PO PRN (19:36)
[2016-08-09] MEDS ORDERED: MOM Conc 10 ML UD.LIQ PO PRN (19:36)
[2016-08-09] MEDS ORDERED: Ibuprofen 400 MG TABLET PO PRN (19:36)
[2016-08-09] MEDS ORDERED: Haloperidol Lactate 5 MG/ML VIAL IM PRN (19:36)
[2016-08-09] MEDS ORDERED: *HR* LORazepam 2 MG/ML VIAL IM PRN (19:36)
[2016-08-09] MEDS ORDERED: hydrOXYzine pamoate 25 MG CAPSULE PO PRN ×2 (19:36→19:42)
[2016-08-09] MEDS: clonazePAM 0.5 MG TABLET PO SCH (20:59)
[2016-08-09] MEDS: Topiramate 25 MG TABLET PO SCH (20:59)
[2016-08-09] MEDS ORDERED: Mirtazapine 15 MG TABLET PO SCH (21:00)
[2016-08-09] MEDS ORDERED: risperiDONE 1 MG TABLET PO SCH (21:00)
[2016-08-09] MEDS: levETIRAcetam 250 MG TABLET PO SCH (21:00)
[2016-08-10] MEDS: clonazePAM 0.5 MG TABLET PO SCH (08:26)
[2016-08-10] MEDS: levETIRAcetam 250 MG TABLET PO SCH ×2 (08:26→20:49)
[2016-08-10] MEDS: Vitamin B Complex/Vit C/Vit E 1 EACH TABLET PO SCH (08:27)
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
--- NOTE | 2016-08-10 19:52 | Electrocardiograph Report ---
[place] [id number] Test Date: 2016-08-09 Pat Name: Marylu Ricketts Department: 105 Room: 1A23 Gender: F [employer]: : 1995 Requested By: Yara Childers Order Number: [id number] Reading MD: Isra Smith Measurements Intervals [place] Rate: 85 P: 7 UT: 157 QRS: 15 QRSD: 93 T: 20 QT: 346 QTc: 388 Interpretive Statements SINUS RHYTHM WITH SINUS ARRHYTHMIA NONSPECIFIC T-WAVE ABNORMALITY Electronically Signed On 08-10-2016 19:50:02 EST by Isra Smith
[2016-08-10] MEDS: OLANZapine 5 MG TAB.RAPDIS PO SCH (20:49)
[2016-08-10] MEDS: Mirtazapine 15 MG TABLET PO SCH (20:49)
[2016-08-10] MEDS: traZODone 50 MG TABLET PO SCH (20:49)
[2016-08-10] MEDS: Topiramate 25 MG TABLET PO SCH (20:50)
[2016-08-10] MEDS ORDERED: Mirtazapine 15 MG TABLET PO SCH (21:00)
[2016-08-11] MEDS: Vitamin B Complex/Vit C/Vit E 1 EACH TABLET PO SCH (08:47)
[2016-08-11] MEDS: levETIRAcetam 250 MG TABLET PO SCH ×2 (08:48→21:31)
--- NOTE | 2016-08-11 10:23 | Psychiatry Progress Note ---
Date of Encounter: 08/11/16 Time of Encounter: 10:21 Subjective Interval history: Patient seen and evaluated this morning. Patient did not come to see so this provider went to go see patient in her room." The patient was asleep and did not wake up for some time to speak with this provider. Patient reports that she did not have a good night because she was up "puking and in the bathroom.". Per staff patient was asleep and then did not observe this. Patient reports no current issues with her medications patient did not require any when necessary medications for agitation or aggression. Patient is demanding and intrusive at times. Patient continues to exhibit a major personality component to her symptomology. Patient appetite is fair. Patient is disruptive in groups per staff at times and has to be redirected her asked to leave. Patient continues to endorse increased anxiety symptoms. Review of Systems Psychiatric: Reports: depression, anxiety, abnormal sleep pattern, suicidal ideation, homicidal ideation, difficulty concentrating, hopelessness, mood swings, panic attacks. Denies: auditory hallucinations, visual hallucinations Objective: Exam Patient orientation: Yes Person, Yes Time, Yes Place, Yes Circumstance Level of alertness: Alert Patient appearance: Disheveled Behavior: anxious, hostile Psychomotor activity: Increased Eye contact: Maintains Eye Contact Mood description: Angry, Depressed, Anxious, Elevated, Labile Affect description: congruent with mood Speech pattern: Normal rate, Normal rhythm Speech volume: Normal Thought process: Intact, Flight of Ideas Thought content: Yes Suicidal ideation, Yes Homicidal ideation, Yes Preoccupation, Yes Paranoid delusion Results - Vital Signs Vital Signs: Temp Pulse Resp BP Pulse Ox 98 F 107 16 124/82 100 08/10/16 20:30 08/10/16 20:30 08/10/16 20:30 08/10/16 20:30 08/09/16 18:02 Assessment and Plan (1) Bipolar disorder with psychotic features Current visit: Yes Status: Acute Plan: Continue hospitalization, Suicide Precautions per unit protocol, Encourage participation in unit milieu, Group Therapy, Monitor sleep, Monitor appetite, Family/Supportive other meeting Additional Plan: 08/11: continue meds and supportive care 08/10: dc home meds, taper effexor down -start remeron 7.5 mg qhs - start zyprexa 5 mg BID Risks, benefits, side effects, alternatives discussed w/pt: Yes Patient agreeable to treatment: Yes (2) Borderline personality disorder Current visit: Yes Status: Acute Plan: Continue hospitalization, Encourage participation in unit milieu, Group Therapy, Monitor sleep, Monitor appetite, Family/Supportive other meeting Risks, benefits, side effects, alternatives discussed w/pt: Yes Patient agreeable to treatment: Yes Consult Discharge Plan - Plan Referrals: [facility] [Outside] (You will see Dr. James on 10/02/2016 @ 3:40pm. You will see Berenice on)
[2016-08-11] MEDS: *HR* LORazepam 0.5 MG TABLET PO PRN (17:53)
[2016-08-11] MEDS: Mag Hydrox/Al Hydrox/Simeth 30 ML UDC PO PRN (20:09)
[2016-08-11] MEDS: traZODone 50 MG TABLET PO SCH (21:30)
[2016-08-11] MEDS: OLANZapine 5 MG TAB.RAPDIS PO SCH (21:31)
[2016-08-11] MEDS: Mirtazapine 15 MG TABLET PO SCH (21:31)
[2016-08-11] MEDS: Topiramate 25 MG TABLET PO SCH (21:32)
[2016-08-12] MEDS: Vitamin B Complex/Vit C/Vit E 1 EACH TABLET PO SCH (09:08)
[2016-08-12] MEDS: levETIRAcetam 250 MG TABLET PO SCH ×2 (09:09→21:05)
[2016-08-12] MEDS: Mag Hydrox/Al Hydrox/Simeth 30 ML UDC PO PRN ×3 (09:34→21:06)
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
[2016-08-12] MEDS: *HR* LORazepam 0.5 MG TABLET PO PRN ×2 (12:33→18:14)
[2016-08-12] MEDS: Lithium Carbonate 300 MG CAPSULE PO SCH ×2 (12:38→21:03)
[2016-08-12] MEDS: traZODone 50 MG TABLET PO SCH (21:02)
[2016-08-12] MEDS: Mirtazapine 15 MG TABLET PO SCH (21:03)
[2016-08-12] MEDS: OLANZapine 5 MG TAB.RAPDIS PO SCH (21:03)
[2016-08-12] MEDS: Topiramate 25 MG TABLET PO SCH (21:04)
[2016-08-13] MEDS: Lithium Carbonate 300 MG CAPSULE PO SCH ×2 (09:02→21:25)
[2016-08-13] MEDS: Vitamin B Complex/Vit C/Vit E 1 EACH TABLET PO SCH (09:02)
[2016-08-13] MEDS: levETIRAcetam 250 MG TABLET PO SCH ×2 (09:03→21:25)
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
[2016-08-13] MEDS: *HR* LORazepam 0.5 MG TABLET PO PRN ×2 (17:10→21:30)
[2016-08-13] MEDS: traZODone 50 MG TABLET PO SCH (21:24)
[2016-08-13] MEDS: Topiramate 25 MG TABLET PO SCH (21:25)
[2016-08-13] MEDS: Mirtazapine 15 MG TABLET PO SCH (21:25)
[2016-08-13] MEDS: OLANZapine 5 MG TAB.RAPDIS PO SCH (21:25)
[2016-08-14] MEDS: Lithium Carbonate 300 MG CAPSULE PO SCH ×2 (08:24→21:34)
[2016-08-14] MEDS: Vitamin B Complex/Vit C/Vit E 1 EACH TABLET PO SCH (08:24)
[2016-08-14] MEDS: levETIRAcetam 250 MG TABLET PO SCH ×2 (08:24→21:34)
[2016-08-14] MEDS: Mag Hydrox/Al Hydrox/Simeth 30 ML UDC PO PRN (10:01)
--- NOTE | 2016-08-14 10:43 | Psychiatry Progress Note ---
Date of Encounter: 08/14/16 Time of Encounter: 10:40 Subjective Interval history: Patient is seen for follow-up. I reviewed notes and evaluation. Nursing staff reports she is attention seeking impulsive labile and showing cluster B personality and behaviors. Sabinal level was not ordered. She reports stable sleep. Denied depressed feelings, denies suicidal or homicidal ideation. Review of Systems Psychiatric: Reports: depression, anxiety, abnormal sleep pattern, difficulty concentrating, mood swings, panic attacks. Denies: suicidal ideation, homicidal ideation, auditory hallucinations, visual hallucinations Objective: Exam Patient orientation: Yes Person, Yes Time, Yes Place, Yes Circumstance Level of alertness: Alert Patient appearance: Disheveled Behavior: calm, cooperative, nervous Psychomotor activity: Normal Eye contact: Maintains Eye Contact Mood description: Euthymic/stable, Labile Affect description: congruent with mood Speech pattern: Normal rate, Normal rhythm Speech volume: Normal Thought process: Intact Thought content: Yes Intact, No Suicidal ideation, No Homicidal ideation Perceptual disturbances: No Auditory hallucinations, No Visual hallucinations Judgment: Fair Insight: Partial Results - Vital Signs Vital Signs: Temp Pulse Resp BP Pulse Ox 99 F 103 16 104/67 100 08/14/16 08:29 08/14/16 08:29 08/14/16 08:29 08/14/16 08:29 08/09/16 18:02 Assessment and Plan (1) Bipolar disorder with psychotic features Current visit: Yes Status: Acute Plan: Continue hospitalization, Suicide Precautions per unit protocol, Encourage participation in unit milieu, Group Therapy, Monitor sleep, Monitor appetite, Family/Supportive other meeting Risks, benefits, side effects, alternatives discussed w/pt: Yes Patient agreeable to treatment: Yes Consult Discharge Plan - Plan Referrals: [facility] [Outside] (You will see Dr. James on 10/02/2016 @ 3:40pm. You will see Berenice on)
[2016-08-14] MEDS: *HR* LORazepam 0.5 MG TABLET PO PRN (14:20)
[2016-08-14] MEDS: traZODone 50 MG TABLET PO SCH (21:34)
[2016-08-14] MEDS: Topiramate 25 MG TABLET PO SCH (21:35)
[2016-08-14] MEDS: Mirtazapine 15 MG TABLET PO SCH (21:35)
[2016-08-14] MEDS: OLANZapine 5 MG TAB.RAPDIS PO SCH (21:35)
[2016-08-15] MEDS: Vitamin B Complex/Vit C/Vit E 1 EACH TABLET PO SCH (08:56)
[2016-08-15] MEDS: Lithium Carbonate 300 MG CAPSULE PO SCH (08:56)
[2016-08-15] MEDS: levETIRAcetam 250 MG TABLET PO SCH (08:56)
[2016-08-15 10:44] VITALS: BP 99/67
--- NOTE | 2016-08-15 11:37 | Discharge Summary ---
Date of Encounter: 08/15/16 Time of Encounter: 11:22 Diagnosis - Discharge Diagnosis (1) Bipolar disorder with psychotic features Priority: Primary Status: Acute Medications - Discharge Medications Prescriptions: Hydroxyzine HCl 50 mg PO Q8H PRN #60 tablet PRN Reason: Anxiety LevETIRAcetam [Keppra] 500 mg PO BID #60 tablet Chambers Carbonate 300 mg PO BID #60 capsule Mirtazapine [Remeron] 15 mg PO HS #30 tablet OLANZapine [Zyprexa Zydis] 5 mg PO HS #30 tab.rapdis Phenytoin ER [Dilantin ER] 100 mg PO TID #90 capsule RisperiDONE [RisperDAL] 1 mg PO HS #30 tablet Topiramate 50 mg PO HS #30 tablet Venlafaxine XR (24 HR) [Effexor XR] 75 mg PO DAILY #30 cap.er.24h Albuterol Sulfate [Ventolin Hfa] 2 puff IH Q4H PRN 07/10/16 [History] Doxycycline 100 mg PO BID 07/10/16 [History] TraZODone 50 mg PO HS PRN #30 tablet 07/16/16 [Rx] ClonazePAM [Klonopin] 0.5 mg PO TID 08/09/16 [History] Mupirocin [Bactroban Oint] 1 appl TP TID 08/09/16 [History] Hydrocortisone 1% CREAM [Cortaid] 1 appl TP BID PRN #0 bottle 08/15/16 [Rx] Hydroxyzine HCl 50 mg PO Q8H PRN #60 tablet 08/15/16 [Rx] LevETIRAcetam [Keppra] 500 mg PO BID #60 tablet 08/15/16 [Rx] Chambers Carbonate 300 mg PO BID #60 capsule 08/15/16 [Rx] Mirtazapine [Remeron] 15 mg PO HS #30 tablet 08/15/16 [Rx] OLANZapine [Zyprexa Zydis] 5 mg PO HS #30 tab.rapdis 08/15/16 [Rx] Phenytoin ER [Dilantin ER] 100 mg PO TID #90 capsule 08/15/16 [Rx] RisperiDONE [RisperDAL] 1 mg PO HS #30 tablet 08/15/16 [Rx] Topiramate 50 mg PO HS #30 tablet 08/15/16 [Rx] Venlafaxine XR (24 HR) [Effexor XR] 75 mg PO DAILY #30 cap.er.24h 08/15/16 [Rx] Vitamin B Complex/Vit C/Vit E [Stresstab] 1 each PO DAILY tablet 08/15/16 [Rx] Allergies Amoxicillin Allergy (Verified 05/12/16 19:37) Anaphylaxis Penicillins [PCN] Allergy (Verified 09/28/15 20:52) Anaphylaxis Results Procedures and tests throughout hospitalization: Completed Lab Orders Category Date Time Status Chambers Routine Lab 08/14/16 12:24 Completed Provider Date of admission: 08/09/16 19:10 Primary care physician: PCP NO Discharging clinician: David Burnett Assessment and Plan - Patient/Caregiver Discharge Instructions Activity: resume usual activities as tolerated Diet: regular diet - Follow up Plan Follow up with: [facility] [Outside] (You will see Dr. James on 10/02/2016 @ 3:40pm. You will see Berenice on) Yaquelin Bettencourt, [employer] [Advanced Practice Nurse] - 08/22/16 4:15 pm (The above appointment is with Yaquelin Bettencourt.) Functional capacity at discharge: independent ambulation Overall status at discharge: Stable Disposition: Home, Self-Care Hospital Course Hospital course: Ms. Ricketts is a 21 year old female admitted from the emergency department for exacerbation of bipolar disorder with psychotic features and poor response to treatment and having suicidal and homicidal ideation. For details of admission please see H&P On the units patient medication were reviewed and adjusted Zyprexa was added on lithium and lithium level was therapeutic before discharge 0.5. Patient participated in groups and activities she was reported to have some attention seeking behaviors and she was redirected by the staff. Prior to discharge patient was medically stable and denies suicidal and homicidal ideation, tolerating medication without side effects and looking forward to move from her current home with her boyfriend. - Time Spent with Patient Total time spent providing and/or coordinating discharge services: Greater than 30 minutes Quality - Multiple Antipsychotics Patient discharged on 2 or more antipsychotic medications: No Procedures - Procedures Procedures: Medication Management, Crisis Stabilization, Supportive Therapy, Group Therapy, Psychoeducational Therapy Mental Status Exam - Mental Status Exam Patient orientation: Yes Person, Yes Time, Yes Place, Yes Circumstance Level of alertness: Alert Patient appearance: Disheveled Behavior: calm, cooperative, nervous Psychomotor activity: Normal Eye contact: Maintains Eye Contact Mood description: Euthymic/stable, Labile Affect description: congruent with mood Speech pattern: Normal rate, Normal rhythm Speech Volume: Normal Thought process: Intact Thought Content: Yes Intact, No Suicidal ideation, No Homicidal ideation Perceptual Disturbances: No Auditory hallucinations, No Visual hallucinations Judgment: Fair Insight: Partial
== END 2016-08-15 15:40 | disposition home or self-care (01) | DRG 753 ==
LOC: EMEROO 16:37 → 1ANU 18:58 → SUATTDRO 19:10 → 1ANU 19:10
PROVIDERS: ADMIT Psychiatry & Neurology Psychiatry; ATTEND Psychiatry & Neurology Psychiatry

== ENCOUNTER 2017-08-12 11:45 | Inpatient (IN) ==
--- NOTE | 2017-08-12 12:24 | Emergency Department Note ---
Disposition Clinical Impression: Pyelonephritis Sepsis Qualifiers: Sepsis type: sepsis due to unspecified organism Qualified Code(s): A41.9 - Sepsis, unspecified organism Disposition: Admitted As Inpatient Condition: Fair Referrals: Donya Goddard CNP [Advanced Practice Nurse] - Forms: ED Satisfaction Letter, Work/School Release Time of Disposition: 16:53 Abdominal Pain HPI - General Chief Complaint: ED Abdominal Pain Stated Complaint: URQ Pain/Vomiting Time Seen by Provider: 08/12/17 12:02 Source: patient Mode of arrival: ambulatory Limitations: no limitations Nursing Notes Reviewed: Yes Vital Signs Reviewed: Yes - History of Present Illness HPI Narrative: 22-year-old female is tube IV drug use, clean for 19 months, history of ectopic tubal 2 A2 presents complaining of right upper quadrant pain radiates to her right flank into right lower quadrant. Patient states that she is having pain in the last week or 2, she was treated with Keflex for an outpatient urinary tract infection a few months ago, she has had worsening dysuria, right flank pain, intractable nausea vomiting and Intermittent fevers, or's report some dysuria, patient denies vaginal bleeding or discharge. She reports retained pain as a 10 out of 10 right upper quadrant, rated into her right flank and back. Pt Subjective Complaint: abdominal pain Location: RUQ, R flank Pain Severity: moderate Pain Scale: 8 Quality: cramping, stabbing, aching Radiation: none Migration to: no migration Improves with: vomiting Associated symptoms: Reports: nausea, vomiting, dysuria. Denies: diarrhea, fever, chills, hematemesis, hematochezia - Related Data Home Medications Medication Instructions Recorded Confirmed Albuterol Sulfate [Ventolin Hfa] 1 - 2 puff IH Q6H PRN 08/12/17 08/12/17 Cetirizine HCl [Cetirizine HCl] 10 mg PO DAILY 08/12/17 08/12/17 Divalproex (12 HR) [Depakote (12 500 mg PO BID 08/12/17 08/12/17 HR)] Fluticasone Propionate [Flovent 2 puff IH BID 08/12/17 08/12/17 Hfa] chlorproMAZINE [Thorazine] 25 mg PO QID 08/12/17 08/12/17 Allergies Allergy/AdvReac Type Severity Reaction Status Date / Time Amoxicillin Allergy Anaphylaxis Verified 10/05/16 21:49 Penicillins [PCN] Allergy Anaphylaxis Verified 10/05/16 21:49 ketorolac [From Toradol] AdvReac Headache Verified 01/14/17 23:22 All systems ED: reviewed and negative except as stated. Review of Systems: As Per HPI Constitutional: Reports: fever, chills Eyes: Denies: eye pain ENT ED: Denies: ear pain Cardiovascular: Denies: chest pain Respiratory: Denies: cough, dyspnea Gastrointestinal: Denies: abdominal pain Genitourinary: Reports: as per HPI, dysuria. Denies: urgency Musculoskeletal: Reports: as per HPI, back pain Integumentary: Denies: rash, abrasion Neurological: Denies: headache Abdominal Pain PMH - Past Medical History Medical history: Reports: asthma, seizures, other Female Surgical History: Reports: other [employer] history: Reports: ectopic Psychiatric history: Reports: anxiety, bipolar, depression, PTSD, previous psychiatric hospitalization, other - Social History Smoking status: Never smoker Alcohol use: Reports: rarely Drug use: Reports: none Physical Exam Constitutional: 22-year-old female appears very uncomfortable. HEENT: NCAT, sclera anicteric Neck: normal inspection, neck is supple, trachea midline Resp: normal chest inspection, CTA bilaterally, no resp distress CV: RRR, no m/g/r GI: normal inspection, Soft, mild right upper quadrant tenderness, no hepatosplenomegaly, BS x 4 quadrants, no tenderness at McBurney' point, Negative Rovsing's Back: normal inspection, positive right CV tenderness, no tenderness to palpation Neuro: A&O3, no gross motor or sensory deficits bilaterally MSK: normal inspection, bilateral UE and LE with normal ROM Skin: No rashes, skin warm, dry, intact - General Limitations: no limitations General appearance: alert Course Course Narrative: 22-year-old female presents right upper quadrant pain and right flank pain, dysuria, possible nephrolithiasis versus nephritis, plan is for CBC BMP, CT scan of abdomen and pelvis, basic lab work IV fluids antiemetics reassess - Reevaluation(s) Reevaluation #1: She had difficulty with pain control, did try sub dissociative ketamine, is worse somewhat with the patient is still having pain, patient refuses Toradol, she also has evidence of tachycardia persistently in the 130s, given fluid boluses, given treatment for pyelonephritis confirmed on CT scan ceftriaxone, to numerous to count white blood cells and bacteria in the urine, likely pyelonephritis and sepsis plan is admission to hospital service. Tra paged at 15:15 Time: 16:29 Reevaluation #2: Discussed the case with Dr. Dutta who will be admitting the patient to the hospital service, sepsis, pyelonephritis, started on Rocephin, blood cultures and lactate added, sepsis at the time CAT scan was resulted, patient also did not get pain relief with ketamine, she wants to accept the risks of relapsing with her narcotic overdose and is requesting IV pain medication which is ordered. Time: 16:53 Vital Signs Temperature 98.9 F 08/12/17 11:46 Pulse Rate 133 08/12/17 11:46 Respiratory Rate 18 08/12/17 11:46 Blood Pressure 117/72 08/12/17 11:46 O2 Sat by Pulse Oximetry 100 08/12/17 11:46 Temperature 98.9 F 08/12/17 11:46 Pulse Rate 128 08/12/17 15:27 Respiratory Rate 16 08/12/17 15:27 Blood Pressure 113/76 08/12/17 15:27 O2 Sat by Pulse Oximetry 99 08/12/17 15:27 Oxygen Delivery Oxygen Delivery Room Air Abdominal Pain - Differential Diagnosis Differential Diagnosis: Likely: acute appendicitis, diverticulitis, diverticulosis, ischemic bowel - Medical Records Medical records reviewed: Yes I reviewed the patient's medical records. - Lab Data Lab results reviewed: Yes I reviewed the patient's lab results. Result diagrams: 08/12/17 12:20 08/12/17 12:20 Lab Results 08/12/17 08/12/17 08/12/17 Range/Units 12:20 12:20 12:23 WBC 13.8 H (4.3-11.1) K/mcL RBC 5.01 H (3.82-4.97) M/mcL Hgb 13.7 (11.5-15.4) g/dL Hct 40.9 (35.3-44.9) % MCV 81.6 L (83.0-100.0) fL MCH 27.3 L (28.0-33.3) pg MCHC 33.5 (31.6-35.5) g/dL RDW 14.0 (11.5-14.5) % Plt Count 277 (140-400) K/mcL MPV 10.0 (9.4-12.4) fL Immature Gran % 0.6 (0-4) % Seg Neutrophils % 81.3 % Lymphocytes % 14.5 % Monocytes % 2.3 % Eosinophils % 0.9 % Basophils % 0.4 % Neutrophils # 11.3 H (1.6-8.9) K/mcL Lymphocytes # 2.0 (0.6-4.6) K/mcL Monocytes # 0.3 (0.0-1.3) K/mcL Eosinophils # 0.1 (0.0-0.6) K/mcL Basophils # 0.1 (0.0-0.2) K/mcL Sodium 132 L (136-145) mEq/L Potassium 3.1 L (3.5-5.1) mEq/L Chloride 102 (98-107) mEq/L Carbon Dioxide 21 L (23-29) mEq/L BUN 8 (6-20) mg/dL Creatinine 0.70 (0.60-1.20) mg/dL Est GFR ( Amer) > 60 (> 60) Est GFR (Non-Af Amer) > 60 (> 60) BUN/Creatinine Ratio 11 (6-26) Glucose 113 H (70-105) mg/dL Calculated Osmolality 273 L (280-300) Calcium 9.5 (8.6-10.3) mg/dL Total Bilirubin 0.8 (0.3-1.0) mg/dL Direct Bilirubin 0.2 (0.0-0.2) mg/dL Indirect Bilirubin 0.6 (0.0-1.2) mg/dL AST 14 (13-39) Units/L ALT 16 (7-52) Units/L Alkaline Phosphatase 99 (34-104) Units/L Serum Total Protein 8.2 (6.4-8.9) g/dL Albumin 4.4 (3.5-5.7) g/dL Globulin 3.8 H (2.4-3.5) g/dL Albumin/Globulin Ratio 1.2 (1.1-2.2) Lipase 15 (11-82) Units/L Urine Color Yellow (Yellow) Urine Clarity Turbid A (Clear) Urine pH 6.0 (5.0-8.0) pH Units Ur Specific Beggs 1.010 (1.010-1.025) Urine Protein 30 H (Neg-Trace) mg/dL Urine Glucose (UA) Normal (Normal) mg/dL Urine Ketones Negative (Negative) mg/dL Urine Blood Large H (Negative) Urine Nitrite Positive A (Negative) Urine Bilirubin Negative (Negative) Urine Urobilinogen Normal (Normal) mg/dL Ur Leukocyte Esterase Large H (Negative) Urine Microscopic RBC TNTC H (0-3) per hpf Urine Microscopic WBC TNTC H (0-3) per hpf Ur Squamous Epith Cells Many H (None-Few) per lpf Urine Bacteria Many H (None-Few) per hpf Hyaline Casts None Seen (None-Few) per lpf Ur Culture Indicated? NO. (NO) Urine Test (Negative) 08/12/17 Range/Units 12:23 WBC (4.3-11.1) K/mcL RBC (3.82-4.97) M/mcL Hgb (11.5-15.4) g/dL Hct (35.3-44.9) % MCV (83.0-100.0) fL MCH (28.0-33.3) pg MCHC (31.6-35.5) g/dL RDW (11.5-14.5) % Plt Count (140-400) K/mcL MPV (9.4-12.4) fL Immature Gran % (0-4) % Seg Neutrophils % % Lymphocytes % % Monocytes % % Eosinophils % % Basophils % % Neutrophils # (1.6-8.9) K/mcL Lymphocytes # (0.6-4.6) K/mcL Monocytes # (0.0-1.3) K/mcL Eosinophils # (0.0-0.6) K/mcL Basophils # (0.0-0.2) K/mcL Sodium (136-145) mEq/L Potassium (3.5-5.1) mEq/L Chloride (98-107) mEq/L Carbon Dioxide (23-29) mEq/L BUN (6-20) mg/dL Creatinine (0.60-1.20) mg/dL Est GFR ( Amer) (> 60) Est GFR (Non-Af Amer) (> 60) BUN/Creatinine Ratio (6-26) Glucose (70-105) mg/dL Calculated Osmolality (280-300) Calcium (8.6-10.3) mg/dL Total Bilirubin (0.3-1.0) mg/dL Direct Bilirubin (0.0-0.2) mg/dL Indirect Bilirubin (0.0-1.2) mg/dL AST (13-39) Units/L ALT (7-52) Units/L Alkaline Phosphatase (34-104) Units/L Serum Total Protein (6.4-8.9) g/dL Albumin (3.5-5.7) g/dL Globulin (2.4-3.5) g/dL Albumin/Globulin Ratio (1.1-2.2) Lipase (11-82) Units/L Urine Color (Yellow) Urine Clarity (Clear) Urine pH (5.0-8.0) pH Units Ur Specific Beggs (1.010-1.025) Urine Protein (Neg-Trace) mg/dL Urine Glucose (UA) (Normal) mg/dL Urine Ketones (Negative) mg/dL Urine Blood (Negative) Urine Nitrite (Negative) Urine Bilirubin (Negative) Urine Urobilinogen (Normal) mg/dL Ur Leukocyte Esterase (Negative) Urine Microscopic RBC (0-3) per hpf Urine Microscopic WBC (0-3) per hpf Ur Squamous Epith Cells (None-Few) per lpf Urine Bacteria (None-Few) per hpf Hyaline Casts (None-Few) per lpf Ur Culture Indicated? (NO) Urine Test Negative (Negative) - Radiology Data Radiology results reviewed: Yes I reviewed the patient's radiology results. Abdomen/Pelvis CT 08/12/17 12:49 IMPRESSION: Scattered areas of patchy hypoattenuation in the right kidney with mild right perinephric stranding suggesting pyelonephritis. D/ / Jaciel Mccray MD / Jaciel Mccray MD Interpreting Provider: Jaciel Mccray MD
[2017-08-12] MEDS ORDERED: Ipratropium/Albuterol Neb 3 ML IH ONE ×2 (12:30→16:45)
[2017-08-12 12:31] LABS: Hematocrit 40.9 % (35.3-44.9); Hemoglobin 13.7 g/dL (11.5-15.4); Mean Corpuscular HGB Conc 33.5 g/dL (31.6-35.5); Mean Corpuscular Hemoglobin 27.3 pg (28.0-33.3); Mean Corpuscular Volume 81.6 fL (83.0-100.0); Platelet Count 277 K/mcL (140-400); Red Blood Count 5.01 M/mcL (3.82-4.97); Segmented Neutrophils % 81.3 %
[2017-08-12 12:32] LABS: Basophils # 0.1 K/mcL (0.0-0.2); Basophils % 0.4 %; Eosinophils # 0.1 K/mcL (0.0-0.6); Eosinophils % 0.9 %; Immature Granulocytes % 0.6 % (0-4); Lymphocytes % 14.5 %; Monocytes # 0.3 K/mcL (0.0-1.3); Monocytes % 2.3 %; Neutrophils # 11.3 K/mcL (1.6-8.9)
[2017-08-12 12:34] LABS: Bilirubin,Urine Negative (Negative); Blood,Urine Large (Negative); Clarity,Urine Turbid (Clear); Color,Urine Yellow (Yellow); Glucose,Urine (UA) Normal (Normal); Ketones,Urine Negative (Negative); Leukocyte Esterase,Urine Large (Negative); Nitrite,Urine Positive (Negative); Protein,Urine 30 mg/dL (Neg-Trace); Urobilinogen,Urine Normal (Normal)
[2017-08-12 12:36] LABS: Bacteria,Urine Many per hpf (None-Few); Hyaline Casts,Urine None Seen per lpf (None-Few); RBC,Urine TNTC per hpf (0-3); Squamous Epithelial Cell,Urine Many per lpf (None-Few); WBC,Urine TNTC per hpf (0-3)
[2017-08-12] MEDS ORDERED: Ondansetron 4 MG/2 ML VIAL IVP ONE (12:49)
[2017-08-12] MEDS ORDERED: 0.9 % Sodium Chloride 1,000 ML IVC ONE ×2 (12:49→14:19)
[2017-08-12 12:50] LABS: Albumin 4.4 g/dL (3.5-5.7); Bilirubin,Direct 0.2 mg/dL (0.0-0.2); Bilirubin,Indirect 0.6 mg/dL (0.0-1.2); Bilirubin,Total 0.8 mg/dL (0.3-1.0); Calcium 9.5 mg/dL (8.6-10.3); Carbon Dioxide 21 mEq/L (23-29); Chloride 102 mEq/L (98-107); Potassium 3.1 mEq/L (3.5-5.1); Sodium 132 mEq/L (136-145)
--- NOTE | 2017-08-12 12:51 | Emergency Department Note ---
START Narrative - START START: I examined this patient and my medical decision-making was reviewed with the emergency medicine resident. I agree with the documented findings, disposition and treatment plan as described except to the extent set forth below. Patient seen with emergency medicine resident Dr. KARY CHAVIRA, Please see a copy of his note for details of the H&P, ED evaluation, management and disposition. I have independently evaluated the patient and confirmed appropriate portions of the history and physical exam. Briefly: A 22-year-old female brought to quadrant pain especially after fatty meals. Strong family history of gallbladder problems. Patient said she was evaluated for this in the past visit was "kidney infection". Patient has no involuntary guarding or Austin's sign. Patient an abdominal pelvic CT noncontrast screening labs analgesics. Patient also did [id number] bedside ultrasound. Disposition pending
[2017-08-12 12:56] LABS: Alanine Aminotransferase 16 Units/L (7-52); Albumin/Globulin Ratio 1.2 (1.1-2.2); Alkaline Phosphatase 99 Units/L (34-104); Aspartate Amino Transferase 14 Units/L (13-39); BUN/Creatinine Ratio 11 (6-26); Blood Urea Nitrogen 8 mg/dL (6-20); Globulin 3.8 g/dL (2.4-3.5); Glucose 113 mg/dL (70-105); Lipase 15 Units/L (11-82); Osmolality,Calculated 273 (280-300); Total Protein 8.2 g/dL (6.4-8.9); eGFR For African Americans > 60 (> 60); eGFR For Non-African Americans > 60 (> 60)
[2017-08-12] MEDS ORDERED: Ketamine *HR* 13 MG in 0.9 % Sodium Chloride 100 ML IVPB ONE (14:28)
[2017-08-12] MEDS ORDERED: cefTRIAXone 2,000 MG in Water for inj. (sterile) 20 ML 20 ML IVP SCH (15:00)
[2017-08-12] MEDS ORDERED: Ipratropium/Albuterol Neb 3 ML ONE (16:46)
[2017-08-12] MEDS ORDERED: *HR* FentaNYL (PF) 100 MCG/2 ML VIAL IVP ONE (16:52)
[2017-08-12] MEDS ORDERED: *HR* FentaNYL (PF) 100 MCG/2 ML VIAL ONE (16:53)
[2017-08-12] MEDS ORDERED: Acetaminophen 325 MG TABLET PO PRN (20:13)
[2017-08-12] MEDS ORDERED: Naloxone 0.4 MG/ML INJ IVP PRN (21:41)
--- NOTE | 2017-08-12 21:48 | Internal Med History&Physical ---
Date of Encounter: 08/12/17 Time of Encounter: 21:48 Assessment and Plan (1) Pyelonephritis Current visit: Yes Status: Acute 22/female Multiple episodes of urinary tract infection in the past. Admitted with abdominal pain/dysuria/increased frequency/nausea/vomiting. CT abdomen: Right-sided pyelonephritis Urine culture 06/22/16 Escherichia coli: pansensitive, 03/09/16: Escherichia coli: Pansensitive Patient was treated in many different facilities and may need her reports from there On examination: Renal punch positive on the right side. Infraumbilical tenderness. Assessment: Right-sided pyelonephritis Recurrent urinary tract infection Plan: Admit as inpatient: Patient needs an intravenous antibiotics. Intravenous ciprofloxacin (patient is allergic to penicillin: Anaphylaxis) IV fluids: Normal saline 70 mL per hour. Patient needs close monitoring of her EKG (monitoring of QT interval) as she is on chlorpromazine 25 mg 4 times a day. Patient might need opinion from urology/nephrology in view of recurrent urinary tract infection. Of note: I have examined this patient in her room. Along with me [place] Fischer was present. (2) Polysubstance abuse Current visit: No Status: Acute Patient is to do intravenous drug/sniffing of drugs. She claims that for 19 months she is clean. For the past 3 years patient was in monogamous relationship. Before that patient had multiple sex partners but she claims she was tested clean. Patient tells me that she was tested positive for hepatitis C Patient does not have any follow-up for hepatitis C (3) Seizure disorder Current visit: No Status: Acute Known to have a seizure disorder. She is on appropriate medication for that. We will resume the medication. (4) DVT prophylaxis Current visit: Yes Status: Acute Heparin Medical decision making: This patient has a moderate to severe risk of worsening in spite of being on appropriate medication due to the underlying chronic comorbid conditions. Internal Medicine - H&P: HPI Chief complaint: Dysuria Admitted From: Emergency Dept Plans for Post Hospital Care: Home History of present illness: PCP: No PCP Brief past medical history: Ex-IV drug abuse, clean for 19 months, history of ectopic , multiple episodes of urinary tract infection in past 3 years. History of present medical illness: This patient is complaining of abdominal pain which is below the umbilicus for past 3-4 days. Patient was complaining of dysuria, increased frequency, subjective fever and persistent abdominal pain. Patient was evaluated in the urgent care and was given antibiotics but her symptoms did not get better with that. With the persistent symptoms and worsening frequency of urination patient decided to come to emergency room for further evaluation. Patient denies chest pain, nausea, abdominal tenderness, dizziness or diarrhea. Patient does have occasional nausea and an episode of vomiting. Workup in the emergency room: Patient was evaluated in the emergency room. Basic labs were drawn. Presence of leukocytosis noted. CT abdomen pelvis: Right-sided pyelonephritis. No evidence of perinephric abscess Reason for admission: Right-sided pyelonephritis which needs intravenous antibiotics. Family history: Noncontributory Past Med Surg Social Fam HX - Past Medical History Medical history: asthma, seizures, other Psychiatric history: anxiety, bipolar, depression, PTSD, previous psychiatric hospitalization, other - Past Surgical History Surgical History: other - Social History Smoking Status: Never smoker Smokeless Tobacco Status: No Alcohol use: rarely Drug use: none Internal Medicine - H&P: Meds Albuterol Sulfate [Ventolin Hfa] 1 - 2 puff IH Q6H PRN 08/12/17 [History] Cetirizine HCl [Cetirizine HCl] 10 mg PO DAILY 08/12/17 [History] Divalproex (12 HR) [Depakote (12 HR)] 500 mg PO BID 08/12/17 [History] Fluticasone Propionate [Flovent Hfa] 2 puff IH BID 08/12/17 [History] chlorproMAZINE [Thorazine] 25 mg PO QID 08/12/17 [History] 3 Allergy/AdvReac Type Severity Reaction Status Date / Time Amoxicillin Allergy Anaphylaxis Verified 10/05/16 21:49 Penicillins [PCN] Allergy Anaphylaxis Verified 10/05/16 21:49 ketorolac [From Toradol] AdvReac Headache Verified 01/14/17 23:22 All Systems PM: A 10-system review of systems was performed and is negative for pertinent findings except as documented above in the HPI. - Constitutional Constitutional: no chills, no fever(s), no night sweats - EENT Eyes: no change in vision, no discharge, no pain, no photophobia Ears: no ear discharge, no ear pain, no tinnitus Nose, mouth and throat: no dysphagia, no nasal discharge, no neck pain, no sore throat - Cardiovascular Cardiovascular ROS IM: no chest pain, no diaphoresis, no dyspnea, no lightheadedness, no palpitations, no syncope - Respiratory Respiratory: no cough, no dyspnea, no wheezing, no excessive phlegm production - Gastrointestinal Gastrointestinal: abdominal pain, no diarrhea, no hematemesis, no hematochezia, no melena, no nausea, no vomiting - Genitourinary Genitourinary: change in urinary stream, dysuria, flank pain, no hematuria - Musculoskeletal Musculoskeletal ROS IM: no numbness, no tingling - Integumentary Integumentary IM: no rash, no unusual bruising - Neurological Neurological ROS: no confusion, no convulsions, no focal weakness, no numbness, no tingling, no tremor(s) - Hematologic/Lymphatic Hematologic/Lymphatic: no easy bruising - Constitutional Vitals: Temp Pulse Resp BP Pulse Ox 98.7 F 137 16 107/68 97 08/12/17 20:51 08/12/17 20:51 08/12/17 20:51 08/12/17 20:51 08/12/17 20:51 General appearance: Present: A&O X 3, pleasant, no acute distress, answers questions appropriately - Head Head exam: Present: atraumatic, normocephalic - Eye Eye exam: Present: PERRL, conjuntiva pink, sclera anicteric Pupils: Present: PERRL - Neck Neck exam general surgery: Present: supple, trachea midline. Absent: lymphadenopathy - Respiratory Respiratory exam: Present: CTAB. Absent: accessory muscle use, rales, rhonchi, wheezes - Cardiovascular Cardiovascular exam: Present: RRR, +S1, +S2. Absent: diastolic murmur, gallop, rubs, systolic murmur - GI/Abdominal GI/Abdominal exam: Present: normal bowel sounds, soft, no peritoneal signs. Absent: distended, tenderness - Extremities Exam Extremities exam: Present: warm, radial pulses palpable and symmetrical. Absent : calf tenderness, cyanotic, pedal edema - Neurological Exam Neurological exam: Present: CN II-XII intact, oriented X3, no focal deficits. Absent: pronater drift, facial droop, speech deficit - Skin Skin exam: Present: dry, intact Internal Med - H&P Results - Labs CBC & Chem 7: 08/12/17 12:20 08/12/17 12:20
[2017-08-12] MEDS: *HR* OxyCODONE Immed Rel 5 MG TABLET PO PRN (21:49)
[2017-08-12] MEDS: 0.9 % Sodium Chloride 1,000 ML IVC SCH (23:05)
[2017-08-12] MEDS: *HR* Heparin 5,000 UNIT/ML VIAL SQ SCH (23:05)
[2017-08-13] MEDS: *HR* OxyCODONE Immed Rel 5 MG TABLET PO PRN (03:52)
[2017-08-13] MEDS: Ondansetron 4 MG/2 ML VIAL IVP PRN ×2 (03:52→16:42)
[2017-08-13 06:10] LABS: Alanine Aminotransferase 11 Units/L (7-52); Albumin 3.1 g/dL (3.5-5.7); Albumin/Globulin Ratio 1.1 (1.1-2.2); Alkaline Phosphatase 69 Units/L (34-104); Aspartate Amino Transferase 11 Units/L (13-39); BUN/Creatinine Ratio 4 (6-26); Bilirubin,Total 0.4 mg/dL (0.3-1.0); Blood Urea Nitrogen 2 mg/dL (6-20); Calcium 7.9 mg/dL (8.6-10.3); Carbon Dioxide 18 mEq/L (23-29); Chloride 111 mEq/L (98-107); Globulin 2.7 g/dL (2.4-3.5); Glucose 105 mg/dL (70-105); Magnesium 1.8 mg/dL (1.6-2.6); Osmolality,Calculated 277 (280-300); Phosphorous 2.1 mg/dL (2.7-4.5); Potassium 3.3 mEq/L (3.5-5.1); Sodium 135 mEq/L (136-145); Total Protein 5.8 g/dL (6.4-8.9); eGFR For African Americans > 60 (> 60); eGFR For Non-African Americans > 60 (> 60)
[2017-08-13 07:01] LABS: Basophils % 0.3 %; Eosinophils # 0.1 K/mcL (0.0-0.6); Eosinophils % 0.9 %; Hematocrit 30.8 % (35.3-44.9); Immature Granulocytes % 0.4 % (0-4); Lymphocytes # 2.7 K/mcL (0.6-4.6); Lymphocytes % 28.9 %; Mean Corpuscular HGB Conc 33.1 g/dL (31.6-35.5); Mean Corpuscular Hemoglobin 27.2 pg (28.0-33.3); Mean Corpuscular Volume 82.1 fL (83.0-100.0); Mean Platelet Volume 10.9 fL (9.4-12.4); Monocytes # 0.6 K/mcL (0.0-1.3); Monocytes % 6.2 %; Neutrophils # 5.9 K/mcL (1.6-8.9); Platelet Count 198 K/mcL (140-400); Red Blood Count 3.75 M/mcL (3.82-4.97); Red Cell Distribution Width 13.9 % (11.5-14.5); Segmented Neutrophils % 63.3 %
[2017-08-13 07:03] LABS: Hemoglobin 10.2 g/dL (11.5-15.4)
[2017-08-13 07:59] LABS: INR 1.7; Prothrombin Time 18.5 Seconds (9.4-12.1)
[2017-08-13 08:09] LABS: Activated Partial Thrombo Time 30.4 Seconds (26.0-36.0)
[2017-08-13] MEDS: Divalproex (12 HR) 500 MG TABLET PO SCH ×2 (08:52→22:00)
[2017-08-13] MEDS: *HR* Heparin 5,000 UNIT/ML VIAL SQ SCH ×2 (08:52→16:43)
[2017-08-13] MEDS: chlorproMAZINE 25 MG TABLET PO SCH ×4 (08:52→22:01)
[2017-08-13] MEDS: *HR* HYDROcodone/Acet 5/325 mg TABLET PO PRN ×2 (09:07→17:51)
--- NOTE | 2017-08-13 09:46 | Internal Med Progress Note ---
Date of Encounter: 08/13/17 Time of Encounter: 09:44 - Assessment and plan (1) Pyelonephritis Current Visit: Yes Status: Acute Assessment and plan: Presented with flank pain, fevers and chills. ABD CT concerning for pyelonephritis. Cont IV cipro. Follow urine cx (2) UTI (urinary tract infection) Current Visit: No Status: Acute Assessment and plan: Reportedly has had over 20 UTIs in the past 2-3 years. Refereed to Urology outpatient but she did not follow-up. UA grossly indicative of UTI; most recent urine culture with pansensitive Escherichia coli. Cont IV cipro. Urology consulted Qualifiers: Urinary tract infection type: acute cystitis Hematuria presence: with hematuria Qualified Code(s): N30.01 - Acute cystitis with hematuria (3) Sepsis Current Visit: Yes Status: Acute Assessment and plan: with WBC 13K, tachycardia and hypotension. Lactic acid normal. Secondary to pyelonephritis/UTI. Hemodynamically stable. Cont IV fluids, cipro. Urine/blood cx'x pending Qualifiers: Sepsis type: sepsis due to unspecified organism Qualified Code(s): A41.9 - Sepsis, unspecified organism (4) Seizure disorder Current Visit: No Status: Acute Assessment and plan: per hx. Cont home AEDs (5) Anemia Current Visit: Yes Status: Acute Assessment and plan: Hgb 13 on arrival ad derppied to 10.2; no active bleeding. Suspect dilutional secondary to IV fluids. Monitor repeat H&H. Occult stool pending. Qualifiers: Anemia type: unspecified type Qualified Code(s): D64.9 - Anemia, unspecified (6) Hepatitis C Current Visit: Yes Status: Acute Assessment and plan: hx IV drug use. Does not follow with GI. LFTs normal. Follow-up outpatient with PCP Qualifiers: Viral hepatitis chronicity: chronic Hepatic coma status: without hepatic coma Qualified Code(s): B18.2 - Chronic viral hepatitis C (7) DVT prophylaxis Current Visit: Yes Status: Acute Assessment and plan: heparin - Subjective Interval history: Seen and examined at bedside, patient is new to me. Information obtained from chart review and patient report. Still with c/o bilateral flank pain and thinks she had a fever overnight. Overall feeling better. - Constitutional Vitals: Temp Pulse Resp BP Pulse Ox 99.0 F 109 18 98/63 97 08/13/17 07:38 08/13/17 07:38 08/13/17 07:38 08/13/17 07:38 08/13/17 07:38 General appearance: Present: A&O X 3, pleasant, no acute distress, answers questions appropriately - Head Head exam: Present: atraumatic, normocephalic - Eye Eye exam: Present: PERRL, conjuntiva pink, sclera anicteric Pupils: Present: PERRL - Neck Neck exam general surgery: Present: supple, trachea midline. Absent: lymphadenopathy - Respiratory Respiratory exam: Present: CTAB. Absent: accessory muscle use, rales, rhonchi, wheezes - Cardiovascular Cardiovascular exam: Present: RRR, +S1, +S2. Absent: diastolic murmur, gallop, rubs, systolic murmur - GI/Abdominal GI/Abdominal exam: Present: normal bowel sounds, soft, no peritoneal signs. Absent: distended, tenderness - Additional comments: + flank tenderness - Extremities Exam Extremities exam: Present: warm, radial pulses palpable and symmetrical. Absent : calf tenderness, cyanotic, pedal edema - Neurological Exam Neurological exam: Present: CN II-XII intact, oriented X3, no focal deficits. Absent: pronater drift, facial droop, speech deficit - Skin Skin exam: Present: dry, intact Internal Medicine: Result - Labs CBC & Chem 7: 08/13/17 06:12 08/13/17 05:17 Labs: Short CBC 08/13/17 Range/Units 06:12 WBC 9.4 (4.3-11.1) K/mcL Hgb 10.2 L D (11.5-15.4) g/dL Hct 30.8 L (35.3-44.9) % Plt Count 198 (140-400) K/mcL Neutrophils # 5.9 (1.6-8.9) K/mcL BMP 08/13/17 05:17 Sodium 135 L Potassium 3.3 L Chloride 111 H Carbon Dioxide 18 L BUN 2 L Creatinine 0.51 L Glucose 105 Calcium 7.9 L Liver Function 08/13/17 Range/Units 05:17 Total Bilirubin 0.4 (0.3-1.0) mg/dL AST 11 L (13-39) Units/L ALT 11 (7-52) Units/L Alkaline Phosphatase 69 (34-104) Units/L Albumin 3.1 L (3.5-5.7) g/dL - ABG Interpretation ABG results: PT/INR, D-dimer PT 18.5 Seconds (9.4-12.1) H 08/13/17 06:12 Consult Discharge Plan - Plan Referrals: NONE,PCP [Primary Care Provider] -
[2017-08-13] MEDS: 0.9 % Sodium Chloride 1,000 ML IVC SCH (10:19)
--- NOTE | 2017-08-13 17:39 | Urology - Consult Note ---
Date of Encounter: 08/13/17 Time of Encounter: 17:38 - Assessment and Plan (1) Pyelonephritis Current Visit: Yes Status: Acute Assessment and plan: I reviewed her CT scan and agree she has evidence of pyelonephritis. the ureter has inflammatory changes consistant with retrograde migration of infection from her bladder. I recommend at least 2 weeks of culture specific ABX to resolve the pyelonephritis. Ultimately she may require a longer course. I do not see any abscesses or need for surgical intervention. Ok to discharge home on PO abx (levaquin or Bactrim) when culture available and pt is stable. Follow in 4 weeks s/p discharge. Urology CN:HPI Consult date: 08/13/17 Reason for consult Urology: Other History of present illness: New pt to the urology practice. admitted with right pyelonephritis. states she has had multiple UTIs over the last 3 years after the of her last child. no previous pyelonephritis. has had recent fever and flank pain. usually as dysuria and suprapubic pain with UTis. Past Med Surg Social Fam HX - Past Medical History Medical history: asthma, seizures, other Psychiatric history: anxiety, bipolar, depression, PTSD, previous psychiatric hospitalization, other - Past Surgical History Surgical History: other - Social History Smoking Status: Never smoker Smokeless Tobacco Status: No Alcohol use: rarely Drug use: none Medications and Allergies Albuterol Sulfate [Ventolin Hfa] 1 - 2 puff IH Q6H PRN 08/12/17 [History] Cetirizine HCl [Cetirizine HCl] 10 mg PO DAILY 08/12/17 [History] Divalproex (12 HR) [Depakote (12 HR)] 500 mg PO BID 08/12/17 [History] Fluticasone Propionate [Flovent Hfa] 2 puff IH BID 08/12/17 [History] chlorproMAZINE [Thorazine] 25 mg PO QID 08/12/17 [History] 3 Allergy/AdvReac Type Severity Reaction Status Date / Time Amoxicillin Allergy Anaphylaxis Verified 10/05/16 21:49 Penicillins [PCN] Allergy Anaphylaxis Verified 10/05/16 21:49 ketorolac [From Toradol] AdvReac Headache Verified 01/14/17 23:22 Review of Systems - Constitutional chills, fever(s), malaise - EENT Nose, mouth and throat: no dizziness - Cardiovascular no chest pain - Gastrointestinal abdominal pain, nausea - Genitourinary Genitourinary: dysuria, flank pain - Musculoskeletal back pain - Integumentary no erythema - Neurological no confusion - Psychiatric no anxiety - Hematologic/Lymphatic no easy bleeding Exam Initial Vital Signs Temp Pulse Resp BP Pulse Ox 98.9 F 133 18 117/72 100 08/12/17 11:46 08/12/17 11:46 08/12/17 11:46 08/12/17 11:46 08/12/17 11:46 - General physical appearance Present: well developed, no distress, no pain - Eyes Present: PERRL, conjunctiva is clear - ENT Present: normal nares, no congestion - Neck Present: no masses, no lymphadenopathy - Respiratory Present: normal respiratory effort - Cardiovascular Cardiovascular exam IM: RRR - Abdomen Abdomen: Present: soft, suprapubic tenderness (mild) - Integumentary Present: no rash, no abnormal pigmentation - Neurologic Present: normal coordination. Absent: disoriented, confused - Musculoskeletal Present: normal gait Urology Results - Labs 08/13/17 06:12 08/13/17 05:17 Abnormal lab results RBC 3.75 M/mcL (3.82-4.97) L 08/13/17 06:12 Hgb 10.2 g/dL (11.5-15.4) L D 08/13/17 06:12 Hct 30.8 % (35.3-44.9) L 08/13/17 06:12 MCV 82.1 fL (83.0-100.0) L 08/13/17 06:12 MCH 27.2 pg (28.0-33.3) L 08/13/17 06:12 PT 18.5 Seconds (9.4-12.1) H 08/13/17 06:12 Sodium 135 mEq/L (136-145) L 08/13/17 05:17 Potassium 3.3 mEq/L (3.5-5.1) L 08/13/17 05:17 Chloride 111 mEq/L (98-107) H 08/13/17 05:17 Carbon Dioxide 18 mEq/L (23-29) L 08/13/17 05:17 BUN 2 mg/dL (6-20) L 08/13/17 05:17 Creatinine 0.51 mg/dL (0.60-1.20) L 08/13/17 05:17 BUN/Creatinine Ratio 4 (6-26) L 08/13/17 05:17 Calculated Osmolality 277 (280-300) L 08/13/17 05:17 Calcium 7.9 mg/dL (8.6-10.3) L 08/13/17 05:17 Phosphorus 2.1 mg/dL (2.7-4.5) L 08/13/17 05:17 AST 11 Units/L (13-39) L 08/13/17 05:17 Serum Total Protein 5.8 g/dL (6.4-8.9) L 08/13/17 05:17 Albumin 3.1 g/dL (3.5-5.7) L 08/13/17 05:17 Urine Clarity Turbid (Clear) A 08/12/17 12:23 Urine Protein 30 mg/dL (Neg-Trace) H 08/12/17 12:23 Urine Blood Large (Negative) H 08/12/17 12:23 Urine Nitrite Positive (Negative) A 08/12/17 12:23 Ur Leukocyte Esterase Large (Negative) H 08/12/17 12:23 Urine Microscopic RBC TNTC per hpf (0-3) H 08/12/17 12:23 Urine Microscopic WBC TNTC per hpf (0-3) H 08/12/17 12:23 Ur Squamous Epith Cells Many per lpf (None-Few) H 08/12/17 12:23 Urine Bacteria Many per hpf (None-Few) H 08/12/17 12:23 Diabetes panel 08/13/17 Range/Units 05:17 Sodium 135 L (136-145) mEq/L Potassium 3.3 L (3.5-5.1) mEq/L Chloride 111 H (98-107) mEq/L Carbon Dioxide 18 L (23-29) mEq/L BUN 2 L (6-20) mg/dL Creatinine 0.51 L (0.60-1.20) mg/dL Glucose 105 (70-105) mg/dL Calcium 7.9 L (8.6-10.3) mg/dL AST 11 L (13-39) Units/L ALT 11 (7-52) Units/L Alkaline Phosphatase 69 (34-104) Units/L Albumin 3.1 L (3.5-5.7) g/dL Calcium panel 08/13/17 Range/Units 05:17 Calcium 7.9 L (8.6-10.3) mg/dL Phosphorus 2.1 L (2.7-4.5) mg/dL Albumin 3.1 L (3.5-5.7) g/dL Pituitary panel 08/13/17 Range/Units 05:17 Sodium 135 L (136-145) mEq/L Potassium 3.3 L (3.5-5.1) mEq/L Chloride 111 H (98-107) mEq/L Carbon Dioxide 18 L (23-29) mEq/L BUN 2 L (6-20) mg/dL Creatinine 0.51 L (0.60-1.20) mg/dL Glucose 105 (70-105) mg/dL Calcium 7.9 L (8.6-10.3) mg/dL Adrenal panel 08/13/17 Range/Units 05:17 Sodium 135 L (136-145) mEq/L Potassium 3.3 L (3.5-5.1) mEq/L Chloride 111 H (98-107) mEq/L Carbon Dioxide 18 L (23-29) mEq/L BUN 2 L (6-20) mg/dL Creatinine 0.51 L (0.60-1.20) mg/dL Glucose 105 (70-105) mg/dL Calcium 7.9 L (8.6-10.3) mg/dL Total Bilirubin 0.4 (0.3-1.0) mg/dL AST 11 L (13-39) Units/L ALT 11 (7-52) Units/L Alkaline Phosphatase 69 (34-104) Units/L Albumin 3.1 L (3.5-5.7) g/dL All other labs normal. Consult Discharge Plan - Plan Referrals: Terry Tolliver DO [Resident] - 09/14/17 2:00 pm (Please bring your new patient packet, photo ID, insurance card and any medications you are on. If you are not able to make it, please give a 24 hour notice. The office is located at the West entrance of the hospital. Thank you)
[2017-08-14] MEDS: *HR* Heparin 5,000 UNIT/ML VIAL SQ SCH ×2 (01:34→09:21)
[2017-08-14 06:59] LABS: Hematocrit 31.8 % (35.3-44.9); Hemoglobin 10.6 g/dL (11.5-15.4); Mean Corpuscular HGB Conc 33.3 g/dL (31.6-35.5); Mean Corpuscular Hemoglobin 27.4 pg (28.0-33.3); Mean Corpuscular Volume 82.2 fL (83.0-100.0); Mean Platelet Volume 11.1 fL (9.4-12.4); Platelet Count 237 K/mcL (140-400); Red Blood Count 3.87 M/mcL (3.82-4.97)
[2017-08-14 07:18] LABS: BUN/Creatinine Ratio 6 (6-26); Blood Urea Nitrogen 3 mg/dL (6-20); Calcium 8.4 mg/dL (8.6-10.3); Carbon Dioxide 17 mEq/L (23-29); Chloride 113 mEq/L (98-107); Glucose 120 mg/dL (70-105); Osmolality,Calculated 282 (280-300); Potassium 3.9 mEq/L (3.5-5.1); Sodium 137 mEq/L (136-145); eGFR For African Americans > 60 (> 60); eGFR For Non-African Americans > 60 (> 60)
[2017-08-14] MEDS: chlorproMAZINE 25 MG TABLET PO SCH (09:21)
[2017-08-14] MEDS: Divalproex (12 HR) 500 MG TABLET PO SCH (09:21)
[2017-08-14] MEDS: *HR* HYDROcodone/Acet 5/325 mg TABLET PO PRN (10:08)
--- NOTE | 2017-08-14 12:23 | Discharge Summary ---
- NOTES TO OUTPATIENT PROVIDER Notes to Outpatient Provider: Prescription refills; she is being provided with 30-day PRN Albuterol and very limited narcotic pain meds; needs Urology f/up; Orders not resulted at time of discharge: Pending orders 08/13/17 08:42 Consult to Urology [CONS] Routine Date of Encounter: 08/14/17 Time of Encounter: 10:30 - Discharge Diagnosis (1) Pyelonephritis Priority: Primary Status: Acute (2) Sepsis Priority: Primary Status: Acute Qualifiers: Sepsis type: Escherichia coli Qualified Code(s): A41.51 - Sepsis due to Escherichia coli [E. coli] (3) Hepatitis C Priority: Secondary Status: Chronic Qualifiers: Viral hepatitis chronicity: chronic Hepatic coma status: without hepatic coma Qualified Code(s): B18.2 - Chronic viral hepatitis C (4) Bipolar disorder with psychotic features Priority: Secondary Status: Chronic (5) Polysubstance abuse Priority: Secondary Status: Chronic (6) Seizure disorder Priority: Secondary Status: Chronic Hospital course: Ms. Ricketts is a 22 year old female with the above medical problems who was admitted with fever, tachycardia, leukocytosis, hypotension. She was noted to have sepsis secondary to UTI/pyelonephritis. CT abdomen/pelvis showed possible right-sided pyelonephritis. Patient was started on aggressive IV hydration, IV antibiotics-ciprofloxacin. Peripheral blood cultures remained negative, urine culture grew Escherichia coli , pansensitive. Patient has history of recurrent UTIs with Escherichia coli. Urology was consulted for this reason and recommend at least 2 weeks of antibiotics and outpatient urology follow-up. Patient is medically stable for discharge with oral ciprofloxacin at this time. Patient and family in agreement with this plan. Discharge discussed with: patient, family - Time Spent with Patient Total time spent providing and/or coordinating discharge services: Greater than 30 minutes (40 min) - Discharge Medications Prescriptions: HYDROcodone/Acet 5/325 mg [Redwood 5-325 mg] 1 tab PO Q6HR PRN 2 Days #5 tablet PRN Reason: Pain Albuterol Sulfate [Ventolin Hfa] 2 puff IH Q6H PRN 30 Days hfa.aer.ad PRN Reason: Shortness Of Breath Ciprofloxacin [Cipro] 500 mg PO BID #24 tablet Home Medications: Cetirizine HCl 10 mg PO DAILY 08/12/17 [History] Divalproex (12 HR) [Depakote (12 HR)] 500 mg PO BID 08/12/17 [History] Fluticasone Propionate [Flovent Hfa] 2 puff IH BID 08/12/17 [History] chlorproMAZINE [Thorazine] 25 mg PO QID 08/12/17 [History] Albuterol Sulfate [Ventolin Hfa] 2 puff IH Q6H PRN 30 Days hfa.aer.ad 08/14/17 [Rx] Ciprofloxacin [Cipro] 500 mg PO BID #24 tablet 08/14/17 [Rx] HYDROcodone/Acet 5/325 mg [Redwood 5-325 mg] 1 tab PO Q6HR PRN 2 Days #5 tablet [Rx] Allergies/Adverse Reactions: 3 Allergy/AdvReac Type Severity Reaction Status Date / Time Amoxicillin Allergy Anaphylaxis Verified 10/05/16 21:49 Penicillins [PCN] Allergy Anaphylaxis Verified 10/05/16 21:49 ketorolac [From Toradol] AdvReac Headache Verified 01/14/17 23:22 Date of admission: 08/12/17 17:21 Primary care physician: PCP NONE Consults: 08/13/17 08:42 Consult to Urology [CONS] Routine Consulting Provider: Urology Alondra Reason for Consult: Pyelonephritis Call Completed: Yes Discharging clinician: Tabatha French Anticipated date of discharge: 08/14/17 - Constitutional Vitals: Temp Pulse Resp BP Pulse Ox 97.8 F 90 16 106/74 97 08/14/17 07:50 08/14/17 07:50 08/14/17 07:50 08/14/17 07:50 08/14/17 07:50 General appearance: Present: A&O X 3, answers questions appropriately - Respiratory Respiratory exam: Present: CTAB. Absent: accessory muscle use, rales, rhonchi, wheezes - Cardiovascular Cardiovascular exam: Present: RRR, +S1, +S2. Absent: diastolic murmur, gallop, rubs, systolic murmur - Patient Status Disposition: Home, Self-Care Condition: Good Functional capacity at discharge: independent ambulation Overall status at discharge: patient is progressing back to baseline - Discharge Instructions Follow Up With: Terry Tolliver DO [Resident] - 09/14/17 2:00 pm (Please bring your new patient packet, photo ID, insurance card and any medications you are on. If you are not able to make it, please give a 24 hour notice. The office is located at the West entrance of the [facility]. Thank you) Humza Witt MD [Partnered Physician] - 08/17/17 2:00 pm Additional Instructions: F/up with Urology in 4 weeks - Diet and Activity Activity: resume usual activities as tolerated Diet: advance to your usual diet
[2017-08-14 12:28] VITALS: BP 108/72
== END 2017-08-14 14:30 | disposition home or self-care (01) | DRG 720 ==
LOC: EMEROO 11:45 → 3ANU 17:21 → SUATTDRO 17:21 → 3ANU 17:22
PROVIDERS: ADMIT Internal Medicine; ATTEND Internal Medicine

== ENCOUNTER 2017-11-08 17:16 | Inpatient (IN) ==
--- NOTE | 2017-11-08 17:26 | Emergency Department Note ---
START Narrative - START START: I examined this patient and my medical decision-making was reviewed with the Resident Physician. I agree with the documented findings, disposition and treatment plan as described except to the extent set forth below. 22yo F here for della roach. pt having HI and SI thoughts. pink slipped to ER by [facility]. hx of depression. having thoughts of hurting herself. will do labs, drug screen, and consult with [facility]A for possible placement. vss; afebrile. alert and oriented. GCS of 15
[2017-11-08 18:10] LABS: Basophils # 0.1 K/mcL (0.0-0.2); Basophils % 0.7 %; Eosinophils # 0.7 K/mcL (0.0-0.6); Eosinophils % 6.1 %; Hematocrit 35.9 % (35.3-44.9); Hemoglobin 12.7 g/dL (11.5-15.4); Immature Granulocytes % 0.5 % (0-4); Lymphocytes # 3.3 K/mcL (0.6-4.6); Lymphocytes % 29.5 %; Mean Corpuscular HGB Conc 35.4 g/dL (31.6-35.5); Mean Corpuscular Hemoglobin 29.9 pg (28.0-33.3); Mean Corpuscular Volume 84.5 fL (83.0-100.0); Monocytes # 0.4 K/mcL (0.0-1.3); Monocytes % 3.9 %; Neutrophils # 6.5 K/mcL (1.6-8.9); Platelet Count 346 K/mcL (140-400); Red Blood Count 4.25 M/mcL (3.82-4.97); Red Cell Distribution Width 13.8 % (11.5-14.5); Segmented Neutrophils % 59.3 %
[2017-11-08 18:26] LABS: Bilirubin,Urine Small (Negative); Blood,Urine Small (Negative); Clarity,Urine Cloudy (Clear); Color,Urine Dark Yellow (Yellow); Glucose,Urine (UA) Normal (Normal); Ketones,Urine Negative (Negative); Leukocyte Esterase,Urine Small (Negative); Nitrite,Urine Negative (Negative); Protein,Urine Trace mg/dL (Neg-Trace); Specific Gravity,Urine 1.023 (1.010-1.025)
[2017-11-08 18:28] LABS: Bacteria,Urine Moderate per hpf (None-Few); Squamous Epithelial Cell,Urine Many per lpf (None-Few); WBC,Urine 30-50 per hpf (0-3)
[2017-11-08 18:29] LABS: Acetaminophen < 10 mcg/mL (10-20); BUN/Creatinine Ratio 15 (6-26); Blood Urea Nitrogen 8 mg/dL (6-20); Calcium 8.8 mg/dL (8.6-10.3); Carbon Dioxide 25 mEq/L (23-29); Chloride 108 mEq/L (98-107); Ethanol < 10 mg/dL (Less than 10); Glucose 111 mg/dL (70-105); Osmolality,Calculated 291 (280-300); Potassium 3.6 mEq/L (3.5-5.1); Salicylate < 2.5 mg/dL (15.0-30.0); Sodium 141 mEq/L (136-145); eGFR For African Americans > 60 (> 60); eGFR For Non-African Americans > 60 (> 60)
[2017-11-08 18:37] LABS: Amphetamine Screen,Urine Positive ng/mL (Cutoff=1000); Barbiturate Screen,Urine Negative ng/mL (Cutoff=200); Benzodiazepines Screen,Urine Negative ng/mL (Cutoff=200); Cannabinoid Screen,Urine Negative ng/mL (Cutoff = 50); Cocaine Screen,Urine Negative ng/mL (Cutoff= 300); Opiate Screen,Urine Negative ng/mL (Cutoff=300); Phencyclidine Screen,Urine Negative ng/mL (Cutoff=25)
[2017-11-08 18:41] LABS: RBC,Urine 0-3 per hpf (0-3)
--- NOTE | 2017-11-08 19:51 | Emergency Department Note ---
Disposition Clinical Impression: Paranoia UTI (urinary tract infection) Qualifiers: Urinary tract infection type: site unspecified Hematuria presence: with hematuria Qualified Code(s): N39.0 - Urinary tract infection, site not specified ; R31.9 - Hematuria, unspecified Disposition: Admitted As Inpatient Condition: Good Psych HPI - General Chief Complaint: ED Psychiatric Symptoms Stated Complaint: SI/psych Time Seen by Provider: 11/08/17 17:19 Source: patient Mode of arrival: ambulatory Limitations: no limitations Nursing Notes Reviewed: Yes Vital Signs Reviewed: Yes - History of Present Illness HPI Narrative: Patient presents to transfer from [facility] with a pink slip for concern for extreme paranoia as well as thoughts of hurting others and potentially hurting herself. She states that she was there to help get medication changes to help with her overall problems. She states that she lives in a bad situation but is on parole and has not been using any recreational drugs. Despite this she is had a hard time sleeping for the last 2 weeks without having a good night sleep and stating that she also has not had a good meal because after eating she gets worsening paranoia. Her paranoia consists of feeling that others are out to get her and potentially hurt her. Because of this she walks around with a pocket knife in her hand and she wants to be ready in case something happens. She states that because of her living situation that this is not an undue paranoia. She states that if they tried to attack her she would hurt them or potentially kill them. She states that if they were getting to her she would rather hurt herself and have them hurt her. Patient has no plan of suicidal ideation at this time. No other medical problems or complaints. Patient will undergo laboratory psychiatric clearance and will be seen by the psychiatry team. - Related Data Previous Rx's Medication Instructions Recorded Albuterol Sulfate [Ventolin Hfa] 2 puff IH Q6H PRN 30 Days 08/14/17 [email or web address] Allergies Allergy/AdvReac Type Severity Reaction Status Date / Time Amoxicillin Allergy Anaphylaxis Verified 11/08/17 17:30 Penicillins [PCN] Allergy Anaphylaxis Verified 11/08/17 17:30 ketorolac [From Toradol] AdvReac Headache Verified 11/08/17 17:30 Review of Systems: CONSTITUTIONAL: No weight loss, fever, chills, weakness or fatigue. HEENT: Eyes: No visual changes. Ears, Nose, Throat: No hearing loss, difficulty talking or unable to swallow. SKIN: No rash or itching. CARDIOVASCULAR: No chest pain, chest pressure or chest discomfort. No palpitations or edema. RESPIRATORY: No shortness of breath, cough or sputum. GASTROINTESTINAL: No anorexia, nausea, vomiting or diarrhea. No abdominal pain or blood. GENITOURINARY: No burning on urination or hematuria. NEUROLOGICAL: No headache, dizziness, syncope, paralysis, ataxia, numbness or tingling in the extremities. No change in bowel or bladder control. MUSCULOSKELETAL: No muscle pain, back pain, joint pain or stiffness. Psych: paranoia Past Medical History - Past Medical History Medical history: Reports: asthma, seizures, other Surgical history: Reports: other Psychiatric history: Reports: anxiety, bipolar, depression, PTSD, previous psychiatric hospitalization, other [employer]CH[employer]ICIAN history: Reports: ectopic - Social History Smoking Status: Never smoker Smokeless Tobacco Status: No Alcohol use: Reports: rarely Drug use: Reports: none Physical Exam General: Well appearing, nontoxic, no acute distress Head: Normocephalic Atraumatic Eyes: PERRL, EOMI ENT: Airway patent, no stridor Neck: supple, no meningismus Chest: Lungs clear to auscultation bilateral Cardiac: Regular rate and rhythm, no murmurs, rubs or gallops Abdomen: soft, nontender, nondistended; no guarding, rebound, or tenderness to percussion Musculoskeletal: Calves symmetric, nontender, no palpable cord Skin: No rash, normal skin tone Neuro: Alert and Oriented to person, place, and time; No focal deficit, CN 2-12 symmetric and intact - General General appearance: alert, in no apparent distress Course Course Narrative: Laboratory concern for possible UTI. Patient cleared for 1 evaluation - Reevaluation(s) Reevaluation #1: Patient admitted to 1 a Vital Signs Temperature 98.1 F 11/08/17 17:24 Pulse Rate 85 11/08/17 17:24 Respiratory Rate 16 11/08/17 17:24 Blood Pressure 114/77 11/08/17 17:24 O2 Sat by Pulse Oximetry 98 11/08/17 17:24 Temperature 98.1 F 11/08/17 17:24 Pulse Rate 87 11/08/17 20:21 Respiratory Rate 18 11/08/17 21:34 Blood Pressure 113/54 11/08/17 21:34 O2 Sat by Pulse Oximetry 96 11/08/17 20:21 Oxygen Delivery Oxygen Delivery Room Air Psych - Lab Data Result diagrams: 11/08/17 17:51 11/08/17 17:51 Lab Results 11/08/17 11/08/17 11/08/17 Range/Units 17:51 17:51 18:22 WBC 11.0 (4.3-11.1) K/mcL RBC 4.25 (3.82-4.97) M/mcL Hgb 12.7 (11.5-15.4) g/dL Hct 35.9 (35.3-44.9) % MCV 84.5 (83.0-100.0) fL MCH 29.9 (28.0-33.3) pg MCHC 35.4 (31.6-35.5) g/dL RDW 13.8 (11.5-14.5) % Plt Count 346 (140-400) K/mcL MPV 10.0 (9.4-12.4) fL Immature Gran % 0.5 (0-4) % Seg Neutrophils % 59.3 % Lymphocytes % 29.5 % Monocytes % 3.9 % Eosinophils % 6.1 % Basophils % 0.7 % Neutrophils # 6.5 (1.6-8.9) K/mcL Lymphocytes # 3.3 (0.6-4.6) K/mcL Monocytes # 0.4 (0.0-1.3) K/mcL Eosinophils # 0.7 H (0.0-0.6) K/mcL Basophils # 0.1 (0.0-0.2) K/mcL Sodium 141 (136-145) mEq/L Potassium 3.6 (3.5-5.1) mEq/L Chloride 108 H (98-107) mEq/L Carbon Dioxide 25 (23-29) mEq/L BUN 8 (6-20) mg/dL Creatinine 0.53 L (0.60-1.20) mg/dL Est GFR ( Amer) > 60 (> 60) Est GFR (Non-Af Amer) > 60 (> 60) BUN/Creatinine Ratio 15 (6-26) Glucose 111 H (70-105) mg/dL Calculated Osmolality 291 (280-300) Calcium 8.8 (8.6-10.3) mg/dL Urine Color Dark Yellow (Yellow) Urine Clarity Cloudy A (Clear) Urine pH 6.0 (5.0-8.0) pH Units Ur Specific [place] 1.023 (1.010-1.025) Urine Protein Trace (Neg-Trace) mg/dL Urine Glucose (UA) Normal (Normal) mg/dL Urine Ketones Negative (Negative) mg/dL Urine Blood Small H (Negative) Urine Nitrite Negative (Negative) Urine Bilirubin Small H (Negative) Urine Urobilinogen 2.0 H (Normal) mg/dL Ur Leukocyte Esterase Small H (Negative) Urine Microscopic RBC 0-3 (0-3) per hpf Urine Microscopic WBC 30-50 H (0-3) per hpf Ur Squamous Epith Cells Many H (None-Few) per lpf Urine Bacteria Moderate H (None-Few) per hpf Salicylates < 2.5 L (15.0-30.0) mg/dL Urine Opiates Screen (Iizytj=861) ng/mL Acetaminophen < 10 L (10-20) mcg/mL Ur Barbiturates Screen (Ohxucw=165) ng/mL Ur Phencyclidine Scrn (Cutoff=25) ng/mL Ur Amphetamines Screen (Elgkwd=8994) ng/mL U Benzodiazepines Scrn (Cdbkyz=291) ng/mL Urine Cocaine Screen (Cutoff= 300) ng/mL U Marijuana (THC) Screen (Cutoff = 50) ng/mL Ethyl Alcohol < 10 (Less than 10) mg/dL 11/08/17 Range/Units 18:22 WBC (4.3-11.1) K/mcL RBC (3.82-4.97) M/mcL Hgb (11.5-15.4) g/dL Hct (35.3-44.9) % MCV (83.0-100.0) fL MCH (28.0-33.3) pg MCHC (31.6-35.5) g/dL RDW (11.5-14.5) % Plt Count (140-400) K/mcL MPV (9.4-12.4) fL Immature Gran % (0-4) % Seg Neutrophils % % Lymphocytes % % Monocytes % % Eosinophils % % Basophils % % Neutrophils # (1.6-8.9) K/mcL Lymphocytes # (0.6-4.6) K/mcL Monocytes # (0.0-1.3) K/mcL Eosinophils # (0.0-0.6) K/mcL Basophils # (0.0-0.2) K/mcL Sodium (136-145) mEq/L Potassium (3.5-5.1) mEq/L Chloride (98-107) mEq/L Carbon Dioxide (23-29) mEq/L BUN (6-20) mg/dL Creatinine (0.60-1.20) mg/dL Est GFR ( Amer) (> 60) Est GFR (Non-Af Amer) (> 60) BUN/Creatinine Ratio (6-26) Glucose (70-105) mg/dL Calculated Osmolality (280-300) Calcium (8.6-10.3) mg/dL Urine Color (Yellow) Urine Clarity (Clear) Urine pH (5.0-8.0) pH Units Ur Specific [place] (1.010-1.025) Urine Protein (Neg-Trace) mg/dL Urine Glucose (UA) (Normal) mg/dL Urine Ketones (Negative) mg/dL Urine Blood (Negative) Urine Nitrite (Negative) Urine Bilirubin (Negative) Urine Urobilinogen (Normal) mg/dL Ur Leukocyte Esterase (Negative) Urine Microscopic RBC (0-3) per hpf Urine Microscopic WBC (0-3) per hpf Ur Squamous Epith Cells (None-Few) per lpf Urine Bacteria (None-Few) per hpf Salicylates (15.0-30.0) mg/dL Urine Opiates Screen Negative (Dzxbtw=479) ng/mL Acetaminophen (10-20) mcg/mL Ur Barbiturates Screen Negative (Gjxaug=407) ng/mL Ur Phencyclidine Scrn Negative (Cutoff=25) ng/mL Ur Amphetamines Screen Positive H (Stmxox=9321) ng/mL U Benzodiazepines Scrn Negative (Omzxxl=029) ng/mL Urine Cocaine Screen Negative (Cutoff= 300) ng/mL U Marijuana (THC) Screen Negative (Cutoff = 50) ng/mL Ethyl Alcohol (Less than 10) mg/dL Psychiatric Medical Clearance - Medical Clearance Checklist Medical History: No Social History Section defined Current Vitals: Last Vital Signs Temp 98.1 F 11/08/17 17:24 Pulse 87 11/08/17 20:21 Resp 18 11/08/17 21:34 BP 113/54 11/08/17 21:34 Pulse Ox 96 11/08/17 20:21 Psychiatric Lab Panel: Drug Levels and Toxicity 11/08/17 11/08/17 17:51 18:22 Urine Opiates Screen Negative Acetaminophen < 10 L Ur Barbiturates Screen Negative Ur Phencyclidine Scrn Negative Ur Amphetamines Screen Positive H U Benzodiazepines Scrn Negative Urine Cocaine Screen Negative U Marijuana (THC) Screen Negative Ethyl Alcohol < 10 Abnormal Labs: Abnormal lab results Eosinophils # 0.7 K/mcL (0.0-0.6) H 11/08/17 17:51 Chloride 108 mEq/L (98-107) H 11/08/17 17:51 Creatinine 0.53 mg/dL (0.60-1.20) L 11/08/17 17:51 Glucose 111 mg/dL (70-105) H 11/08/17 17:51 Urine Clarity Cloudy (Clear) A 11/08/17 18:22 Urine Blood Small (Negative) H 11/08/17 18:22 Urine Bilirubin Small (Negative) H 11/08/17 18:22 Urine Urobilinogen 2.0 mg/dL (Normal) H 11/08/17 18:22 Ur Leukocyte Esterase Small (Negative) H 11/08/17 18:22 Urine Microscopic WBC 30-50 per hpf (0-3) H 11/08/17 18:22 Ur Squamous Epith Cells Many per lpf (None-Few) H 11/08/17 18:22 Urine Bacteria Moderate per hpf (None-Few) H 11/08/17 18:22 Salicylates < 2.5 mg/dL (15.0-30.0) L 11/08/17 17:51 Acetaminophen < 10 mcg/mL (10-20) L 11/08/17 17:51 Ur Amphetamines Screen Positive ng/mL (Ndkrhz=5387) H 11/08/17 18:22 Statement of Medical Clearance: I have evaluated the patient, reviewed diagnostic information, and certify that the patient's medical condition is sufficiently stable that transfer to the psychiatric unit does not pose a significant risk of deterioration.
[2017-11-08] MEDS ORDERED: Mag Hydrox/Al Hydrox/Simeth 30 ML UDC PO PRN (22:26)
[2017-11-08] MEDS ORDERED: Haloperidol Lactate 5 MG/ML VIAL IM PRN (22:26)
[2017-11-08] MEDS ORDERED: Ibuprofen 400 MG TABLET PO PRN (22:26)
[2017-11-08] MEDS ORDERED: MOM Conc 10 ML UD.LIQ PO PRN (22:26)
[2017-11-08] MEDS ORDERED: *HR* LORazepam 2 MG/ML VIAL IM PRN (22:26)
[2017-11-08] MEDS ORDERED: *HR* LORazepam 1 MG TABLET PO PRN (22:26)
[2017-11-08] MEDS ORDERED: hydrOXYzine pamoate 25 MG CAPSULE PO PRN (22:26)
[2017-11-08] MEDS ORDERED: *HR* LORazepam 1 MG TABLET PO ONE (22:32)
[2017-11-08] MEDS: risperiDONE 1 MG TABLET PO SCH (23:00)
[2017-11-08] MEDS: traZODone 50 MG TABLET PO PRN (23:00)
--- NOTE | 2017-11-09 18:57 | Psychiatry History & Physical ---
Date of Encounter: 11/09/17 Time of Encounter: 18:00 History of Present Illness Medicare Admission Attestation: For traditional Medicare patients the provided hospital inpatient services are reasonable and necessary and in the case of services not specified as inpatient -only under 42 CFR 419.22 (n), that they are appropriately provided as inpatient services in accordance 42 CFR 412.3. For Critical Access Hospital the patient may reasonably be expected to be discharged or transferred to a hospital within 96 hours after admission to the Critical Access Hospital. Pt is a 22 yo, , female, never , with 3 children (3,6,11)who presents for psychosis, mood and depression. Pt stated that she lives in a bad situation but is on probation and has not been using any recreational drugs. Despite this she is had a hard time sleeping for the last 2 weeks without having a good night sleep and stating that she also has not had a good meal because after eating she gets worsening paranoia. Her paranoia consists of feeling that others are out to get her and potentially hurt her. Because of this she walks around with a pocket knife in her hand and she wants to be ready in case something happens. She states that because of her living situation that this is not an undue paranoia. She states that if they tried to attack her she would hurt them or potentially kill them. She states that if they were getting to her she would rather hurt herself and have them hurt her. Patient has no plan of suicidal ideation at this time. Pt noted she felt safe and comfortable on the unit. Pt was in agreement with treatment plan. Pt noted that she is doing better today. Pt noted she slept 8-10 hours last night. Pt noted her appetite is reduced. Pt rated her depression a 0.I am not sad I just dont care, on a scale of zero to ten with ten being the worst and zero being none. Pt rate her anxiety a 7, on the same scale. Pt denied any current visual or auditory hallucinations. Pt denied any thoughts to harm herself or anyone else. Pt noted she has her own home in [place] and people stay with her. Pt noted that her mother and father are both alive and live in [place], [place], we dont talk much. Pt noted that her highest level of education is [employer]. Pt noted she is currently unemployed. Pt noted multiple inpt psychiatric hospitalizations most recent was Sept of last year in [facility]. Pt noted multiple suicide attempts most recent was trying to hang herself with an extension cord. Pt noted her Great Grandmother completed suicide via hanging. PT noted her mother and father both have Bipolar D/O. No TD noted, AIMS=0 Tobacco: Denies Alcohol: Denies Street: Denies Caffeine: Denies 1.Interval hx 2.Continue current medications 3.Review current labs 4.Pt had an opportunity to ask questions and discuss current treatment plan. 5.Supportive therapy was provided 6.Pt encouraged to consider group or individual therapy 7.Pt was in agreement with treatment plan. 8.Pt was educated on the risks benefits and side effects of current medications. 9. Continue risperidone 2mg PO QHS with plan to discharge pt on paliperidone injection (pt was in agreement). History of Present Illness: Ms. Ricketts is a 22 year old female Past Med Surg Social Fam HX - Past Medical History Medical history: asthma, seizures, other - Past Psychiatric History Psychiatric history: Reports: anxiety, bipolar, depression, prior suicide attempt, schizophrenia, previous psychiatric hospitalization Family psychiatric history: Yes Family History of Suicide: Completed - Past Surgical History Surgical History: cholecystectomy, other - Social History Smoking Status: Never smoker Smokeless Tobacco Status: No Alcohol use: rarely Drug use: none Medications & Allergies Albuterol Sulfate [Ventolin Hfa] 2 puff IH Q6H PRN 30 Days [email or web address] 08/14/17 [Rx] Fluticasone/Vilanterol [Breo Ellipta 100-25 Mcg INH] 1 puff IH DAILY 11/08/17 [ History] 3 Allergy/AdvReac Type Severity Reaction Status Date / Time Amoxicillin Allergy Anaphylaxis Verified 11/08/17 17:30 Penicillins [PCN] Allergy Anaphylaxis Verified 11/08/17 17:30 ketorolac [From Toradol] AdvReac Headache Verified 11/08/17 17:30 Review of Systems Constitutional: Denies: fever, chills, weakness, weight change Eyes: Denies: eye pain, vision change Ears, Nose, Throat: Denies: ear pain, throat pain, dental pain, hearing loss, congestion Cardiovascular: Denies: chest pain, palpitations, dyspnea on exertion Respiratory: Denies: cough, dyspnea, wheezes Gastrointestinal: Denies: abdominal pain, nausea, vomiting, diarrhea, constipation Genitourinary female: Denies: urgency, dysuria, frequency, abnormal menses, dyspareunia Musculoskeletal: Denies: joint swelling, joint pain Integumentary: Denies: rash, lesions, pruritus Neurological: Denies: headache, weakness, numbness, memory loss Psychiatric: Reports: depression, anxiety, suicidal ideation, auditory hallucinations, visual hallucinations, mood swings Endocrine: Denies: fatigue, heat or cold intolerance Hematologic/Lymphatic: Denies: easy bruising, lymphadenopathy Allergic/Immunologic: Denies: urticaria, itchy eyes Exam - HEENT Head exam IM: Present: atraumatic Eye exam IM: Present: EOMI, normal appearance, PERRL ENT exam IM: Present: normal exam - Neurological Neurological exam: Present: CN II-XII intact - Respiratory Respiratory exam IM: Present: CTAB - GI/Abdominal GI/Abdominal exam IM: Present: normal bowel sounds, soft. Absent: tenderness - Extremities Extremities exam IM: Present: full ROM - Skin Skin exam IM: Present: dry, warm - Constitutional Vitals: Temp Pulse Resp BP Pulse Ox 98.1 F 91 16 120/58 96 11/09/17 09:00 11/09/17 09:00 11/09/17 09:00 11/09/17 09:00 11/08/17 20:21 General appearance: age & developmentally appropriate, well-groomed, well- nourished - Musculoskeletal Gait: normal Station: relaxed Strength & Tone: normal for patient - Psychiatric Patient Orientation: Yes Person, Yes Time, Yes Place Level of alertness: Alert, Sedated Behavior: calm, cooperative, agitated, suspicious Psychomotor activity: Slowed Eye Contact: Maintains Eye Contact Mood Description: Euthymic/stable, Depressed Affect description: congruent with mood, flat Speech Volume: Normal Speech pattern: normal rate, normal rhythm, normal tone, fluent, spontaneous Language & Vocabulary: consistent with education Thought Process: Linear, Goal Oriented Thought Content: Yes Suicidal ideation, No Homicidal ideation, No Overt delusions, Yes Paranoid delusion Perceptual Disturbances: No Auditory hallucinations, No Visual hallucinations Attention Span Ability: Capable of Focused Attention Memory Description: Grossly Intact Fund of knowledge: Yes abstraction ability, Yes average, Yes aware of current events Intelligence Estimate: Average Judgment: Fair Insight: Partial Results - Labs Labs: Laboratory Last Values WBC 11.0 K/mcL (4.3-11.1) 11/08/17 17:51 RBC 4.25 M/mcL (3.82-4.97) 11/08/17 17:51 Hgb 12.7 g/dL (11.5-15.4) 11/08/17 17:51 Hct 35.9 % (35.3-44.9) 11/08/17 17:51 MCV 84.5 fL (83.0-100.0) 11/08/17 17:51 MCH 29.9 pg (28.0-33.3) 11/08/17 17:51 MCHC 35.4 g/dL (31.6-35.5) 11/08/17 17:51 RDW 13.8 % (11.5-14.5) 11/08/17 17:51 Plt Count 346 K/mcL (140-400) 11/08/17 17:51 MPV 10.0 fL (9.4-12.4) 11/08/17 17:51 Immature Gran % 0.5 % (0-4) 11/08/17 17:51 Seg Neutrophils % 59.3 % 11/08/17 17:51 Lymphocytes % 29.5 % 11/08/17 17:51 Monocytes % 3.9 % 11/08/17 17:51 Eosinophils % 6.1 % 11/08/17 17:51 Basophils % 0.7 % 11/08/17 17:51 Neutrophils # 6.5 K/mcL (1.6-8.9) 11/08/17 17:51 Lymphocytes # 3.3 K/mcL (0.6-4.6) 11/08/17 17:51 Monocytes # 0.4 K/mcL (0.0-1.3) 11/08/17 17:51 Eosinophils # 0.7 K/mcL (0.0-0.6) H 11/08/17 17:51 Basophils # 0.1 K/mcL (0.0-0.2) 11/08/17 17:51 Sodium 141 mEq/L (136-145) 11/08/17 17:51 Potassium 3.6 mEq/L (3.5-5.1) 11/08/17 17:51 Chloride 108 mEq/L (98-107) H 11/08/17 17:51 Carbon Dioxide 25 mEq/L (23-29) 11/08/17 17:51 BUN 8 mg/dL (6-20) 11/08/17 17:51 Creatinine 0.53 mg/dL (0.60-1.20) L 11/08/17 17:51 Est GFR ( Amer) > 60 (> 60) 11/08/17 17:51 Est GFR (Non-Af Amer) > 60 (> 60) 11/08/17 17:51 BUN/Creatinine Ratio 15 (6-26) 11/08/17 17:51 Glucose 111 mg/dL (70-105) H 11/08/17 17:51 Calculated Osmolality 291 (280-300) 11/08/17 17:51 Calcium 8.8 mg/dL (8.6-10.3) 11/08/17 17:51 Urine Color Dark Yellow (Yellow) 11/08/17 18:22 Urine Clarity Cloudy (Clear) A 11/08/17 18:22 Urine pH 6.0 pH Units (5.0-8.0) 11/08/17 18:22 Ur Specific [place] 1.023 (1.010-1.025) 11/08/17 18:22 Urine Protein Trace mg/dL (Neg-Trace) 11/08/17 18:22 Urine Glucose (UA) Normal mg/dL (Normal) 11/08/17 18:22 Urine Ketones Negative mg/dL (Negative) 11/08/17 18:22 Urine Blood Small (Negative) H 11/08/17 18:22 Urine Nitrite Negative (Negative) 11/08/17 18:22 Urine Bilirubin Small (Negative) H 11/08/17 18:22 Urine Urobilinogen 2.0 mg/dL (Normal) H 18 18:22 Ur Leukocyte Esterase Small (Negative) H 11/08/17 18:22 Urine Microscopic RBC 0-3 per hpf (0-3) 11/08/17 18:22 Urine Microscopic WBC 30-50 per hpf (0-3) H 11/08/17 18:22 Ur Squamous Epith Cells Many per lpf (None-Few) H 11/08/17 18:22 Urine Bacteria Moderate per hpf (None-Few) H 11/08/17 18:22 Salicylates < 2.5 mg/dL (15.0-30.0) L 11/08/17 17:51 Urine Opiates Screen Negative ng/mL (Brywoj=767) 11/08/17 18:22 Acetaminophen < 10 mcg/mL (10-20) L 18 17:51 Ur Barbiturates Screen Negative ng/mL (Jvuzcu=407) 18 18:22 Ur Phencyclidine Scrn Negative ng/mL (Cutoff=25) 11/08/17 18:22 Ur Amphetamines Screen Positive ng/mL (Mwfqvt=2685) H 11/08/17 18:22 U Benzodiazepines Scrn Negative ng/mL (Bhhths=830) 18 18:22 Urine Cocaine Screen Negative ng/mL (Cutoff= 300) 11/08/17 18:22 U Marijuana (THC) Screen Negative ng/mL (Cutoff = 50) 11/08/17 18:22 Ethyl Alcohol < 10 mg/dL (Less than 10) 11/08/17 17:51 Assessment and Plan (1) Schizoaffective disorder, bipolar type Current visit: Yes Status: Acute Plan: Admit inpatient for safety and stabilization Risks, benefits, side effects, alternatives discussed w/pt: Yes Patient agreeable to treatment: Yes Plans for Post Hospital Care: Home (2) Suicidal ideation Current visit: Yes Status: Acute Plan: Admit inpatient for safety and stabilization Risks, benefits, side effects, alternatives discussed w/pt: Yes Patient agreeable to treatment: Yes Plans for Post Hospital Care: Home (3) Depression Current visit: Yes Status: Acute Plan: Admit inpatient for safety and stabilization Risks, benefits, side effects, alternatives discussed w/pt: Yes Patient agreeable to treatment: Yes Plans for Post Hospital Care: Home Qualifiers: Depression Type: unspecified Qualified Code(s): F32.9 - Major depressive disorder, single episode, unspecified (4) Borderline personality disorder Current visit: No Status: Acute Plan: Admit inpatient for safety and stabilization Risks, benefits, side effects, alternatives discussed w/pt: Yes Patient agreeable to treatment: Yes Plans for Post Hospital Care: Home (5) Amphetamine use disorder, moderate Current visit: Yes Status: Acute Plan: Admit inpatient for safety and stabilization Risks, benefits, side effects, alternatives discussed w/pt: Yes Patient agreeable to treatment: Yes Plans for Post Hospital Care: Home
[2017-11-09] MEDS: risperiDONE 1 MG TABLET PO SCH (21:43)
--- NOTE | 2017-11-10 14:44 | Psychiatry Progress Note ---
Date of Encounter: 11/10/17 Time of Encounter: 14:00 Subjective Interval history: Patient is a 22y/o female with a h/o bipolar disorder,multiple inpatient hospitalizations pinked slip by her psychiatrist for making homicidal and suicidal statement. Patient has been sleeping and isolating herself in her room since her admission to the unit. She was seen this morning in the office. Patient was irritable but cooperative on presentation. She complained about having nothing to do hence her decision to stay in her room and sleep. She also complained about not being given the right medications because everyone want to "f" with me. She stated the only medications that helps her anxiety were benzoes thorazine, but no one will listen to her. She endorsed worsening mood swing, instability and racing thoughts because she stopped taking her medications. She endorsed feeling depressed abd was evasive on suicidal ideations. On review of symptoms, she denied AH/VH/HI. She stated poor effect of Risperdal in the ast and does not to continue with it. I plan to start Depakote and Thorazine due to prior good effect for both anxiety and mood symptoms per patient. Review of Systems Constitutional: Denies: fever, chills, weakness, weight change Eyes: Denies: eye pain, vision change Ears, Nose, Throat: Denies: ear pain, throat pain, dental pain, hearing loss, congestion Cardiovascular: Denies: chest pain, palpitations, dyspnea on exertion Respiratory: Denies: cough, dyspnea, wheezes Gastrointestinal: Denies: abdominal pain, nausea, vomiting, diarrhea, constipation Musculoskeletal: Denies: joint swelling, joint pain Neurological: Denies: headache, weakness, numbness, memory loss Psychiatric: Reports: anxiety, suicidal ideation, hopelessness, irritability, mood swings, other Results - Vital Signs Vital Signs: Temp Pulse Resp BP Pulse Ox 98.1 F 109 18 111/73 96 11/10/17 09:00 11/10/17 09:00 11/10/17 09:00 11/10/17 09:00 11/08/17 20:21 Assessment and Plan (1) Seizure disorder Current visit: No Status: Chronic (2) Polysubstance abuse Current visit: Yes Status: Chronic Plan: Continue hospitalization (3) Suicidal ideation Current visit: Yes Status: Acute Plan: Suicide Precautions per unit protocol Risks, benefits, side effects, alternatives discussed w/pt: Yes Patient agreeable to treatment: Yes (4) Bipolar disorder with psychotic features Current visit: Yes Status: Acute (5) Borderline personality disorder Current visit: Yes Status: Chronic Risks, benefits, side effects, alternatives discussed w/pt: Yes Patient agreeable to treatment: Yes Consult Discharge Plan - Plan Referrals: [facility] [Outside] - 11/16/17 2:30 pm (The above appointment is with Dr. James for outpatient psychiatric assessment and medication management services. ) Psychiatry Exam - Constitutional Vitals: Temp Pulse Resp BP Pulse Ox 98.1 F 109 18 111/73 96 11/10/17 09:00 11/10/17 09:00 11/10/17 09:00 11/10/17 09:00 11/08/17 20:21 General appearance: age & developmentally appropriate - Musculoskeletal Gait: normal Station: relaxed Strength & Tone: normal for patient - Psychiatric Patient Orientation: Yes Person, Yes Place, Yes Circumstance Level of alertness: Sedated Behavior: hostile Psychomotor activity: Slowed Eye Contact: Maintains Eye Contact Mood Description: Depressed, Irritable Affect description: constricted Speech Volume: Normal Speech pattern: normal rate, normal rhythm, normal tone, fluent, spontaneous Language & Vocabulary: consistent with education Thought Process: Logical, Goal Oriented Thought Content: No Suicidal ideation, No Homicidal ideation, No Overt delusions Perceptual Disturbances: No Auditory hallucinations, No Visual hallucinations Attention Span Ability: Unable to Focus Memory Description: Grossly Intact Patient Reliability: Questionable Historian Fund of knowledge: Yes average Intelligence Estimate: Average Judgment: Poor Insight: Minimal
[2017-11-10] MEDS: Divalproex (24 HR) 500 MG TABLET PO SCH (21:27)
[2017-11-10] MEDS: chlorproMAZINE 25 MG TABLET PO SCH (21:27)
[2017-11-11] MEDS: chlorproMAZINE 25 MG TABLET PO SCH ×2 (10:09→20:58)
--- NOTE | 2017-11-11 14:24 | Psychiatry Progress Note ---
Date of Encounter: 11/11/17 Time of Encounter: 14:00 Subjective Interval history: Identifying Data: Patient is a 22y/o female with a h/o bipolar disorder,multiple inpatient hospitalizations pinked slip by her psychiatrist for making homicidal and suicidal statement. Interval Hx: There no reported behviorl issues or incident overnight. Patient is less isolating and was seen in group interacting with peers. She is also less irritable and endorsed some improvement in her anxiety. She is more positive and future oriented. She reported significant improvement in her anxiety and apologised for her bahavior yesterday. She is compliant with her medications and denied any side effects. She denied problems with her sleep and appetite.. On review of symptoms, she denied other mood and psychotic symptoms including AH /VH/HI.SI. Review of Systems Constitutional: Denies: fever, chills, weakness, weight change Eyes: Denies: eye pain, vision change Ears, Nose, Throat: Denies: ear pain, throat pain, dental pain, hearing loss, congestion Cardiovascular: Denies: chest pain, palpitations, dyspnea on exertion Respiratory: Denies: cough, dyspnea, wheezes Gastrointestinal: Denies: abdominal pain, nausea, vomiting, diarrhea, constipation Musculoskeletal: Denies: joint swelling, joint pain Neurological: Denies: headache, weakness, numbness, memory loss Psychiatric: Reports: depression, anxiety, suicidal ideation, hopelessness, irritability, mood swings, other Results - Vital Signs Vital Signs: Temp Pulse Resp BP Pulse Ox 97.8 F 99 18 119/79 96 11/10/17 20:21 11/10/17 20:21 11/10/17 20:21 11/10/17 20:21 11/08/17 20:21 Assessment and Plan (1) Seizure disorder Current visit: No Status: Chronic (2) Polysubstance abuse Current visit: Yes Status: Chronic (3) Suicidal ideation Current visit: Yes Status: Acute Risks, benefits, side effects, alternatives discussed w/pt: Yes Patient agreeable to treatment: Yes (4) Bipolar disorder with psychotic features Current visit: Yes Status: Acute (5) Borderline personality disorder Current visit: Yes Status: Chronic Risks, benefits, side effects, alternatives discussed w/pt: Yes Patient agreeable to treatment: Yes Consult Discharge Plan - Plan Referrals: [facility] [Outside] - 11/16/17 2:30 pm (The above appointment is with Dr. James for outpatient psychiatric assessment and medication management services. ) Psychiatry Exam - Constitutional Vitals: Temp Pulse Resp BP Pulse Ox 97.8 F 99 18 119/79 96 11/10/17 20:21 11/10/17 20:21 11/10/17 20:21 11/10/17 20:21 11/08/17 20:21 General appearance: age & developmentally appropriate - Musculoskeletal Gait: normal Station: other Strength & Tone: normal for patient - Psychiatric Patient Orientation: Yes Person, Yes Time, Yes Place, Yes Circumstance Level of alertness: Alert Psychomotor activity: Normal Eye Contact: Maintains Eye Contact Mood Description: Irritable Affect description: constricted Speech Volume: Normal Speech pattern: normal rate Language & Vocabulary: consistent with education Thought Process: Logical, Goal Oriented Thought Content: No Suicidal ideation, No Homicidal ideation, No Overt delusions Perceptual Disturbances: No Auditory hallucinations, No Visual hallucinations Attention Span Ability: Capable of Focused Attention Memory Description: Grossly Intact Patient Reliability: Questionable Historian Fund of knowledge: Yes abstraction ability, Yes aware of current events Intelligence Estimate: Below Average Judgment: Poor Insight: Minimal
[2017-11-11] MEDS: Divalproex (24 HR) 500 MG TABLET PO SCH (20:59)
[2017-11-11] MEDS: traZODone 50 MG TABLET PO PRN (21:47)
[2017-11-12] MEDS: chlorproMAZINE 25 MG TABLET PO SCH (08:26)
[2017-11-12 11:04] VITALS: BP 106/70
--- NOTE | 2017-11-12 14:30 | Discharge Summary ---
Date of Encounter: 11/12/17 Time of Encounter: 14:00 Diagnosis - Discharge Diagnosis (1) Bipolar disorder, current episode mixed, severe, without psychotic features Priority: Primary Status: Acute (2) Intractable seizure disorder Status: Chronic (3) Suicidal ideation Status: Resolved (4) Borderline personality disorder Status: Chronic Medications - Discharge Medications Prescriptions: chlorproMAZINE [Thorazine] 25 mg PO BID 60 Days #30 tablet Divalproex (24 HR) [Depakote ER (24 HR)] 500 mg PO HS 30 Days #30 tab.er.24h hydrOXYzine pamoate [HydrOXYzine Pamoate] 25 mg PO TID PRN 30 Days #30 capsule PRN Reason: Anxiety traZODone [TraZODone] 50 mg PO HS PRN 30 Days #30 tablet PRN Reason: Insomnia Albuterol Sulfate [Ventolin Hfa] 2 puff IH Q6H PRN 30 Days hfa.aer.ad 08/14/17 [Rx] Fluticasone/Vilanterol [Breo Ellipta 100-25 Mcg INH] 1 puff IH DAILY 11/08/17 [ History] Divalproex (24 HR) [Depakote ER (24 HR)] 500 mg PO HS 30 Days #30 tab.er.24h [Rx] chlorproMAZINE [Thorazine] 25 mg PO BID 60 Days #30 tablet 11/12/17 [Rx] hydrOXYzine pamoate [HydrOXYzine Pamoate] 25 mg PO TID PRN 30 Days #30 capsule 11/12/17 [Rx] traZODone [TraZODone] 50 mg PO HS PRN 30 Days #30 tablet 11/12/17 [Rx] 3 Allergy/AdvReac Type Severity Reaction Status Date / Time Amoxicillin Allergy Anaphylaxis Verified 11/08/17 17:30 Penicillins [PCN] Allergy Anaphylaxis Verified 11/08/17 17:30 ketorolac [From Toradol] AdvReac Headache Verified 11/08/17 17:30 Provider Date of admission: 11/08/17 21:31 Primary care physician: PCP NONE Discharging clinician: Osman Schroeder Psychiatry Exam - Constitutional Vitals: Temp Pulse Resp BP Pulse Ox 97.9 F 99 18 106/70 96 11/12/17 09:00 11/12/17 09:00 11/12/17 09:00 11/12/17 09:00 11/08/17 20:21 General appearance: age & developmentally appropriate, well-nourished, unkempt - Musculoskeletal Gait: normal Station: relaxed Strength & Tone: normal for patient - Psychiatric Patient Orientation: Yes Person, Yes Time, Yes Place Level of alertness: Alert Behavior: calm, cooperative Psychomotor activity: Normal Eye Contact: Maintains Eye Contact Mood Description: Euthymic/stable Affect description: congruent with mood, full range Speech Volume: Normal Speech pattern: normal rate, normal rhythm, normal tone, fluent, spontaneous Language & Vocabulary: consistent with education Thought Process: Linear, Goal Oriented Thought Content: No Suicidal ideation, No Homicidal ideation, No Overt delusions Perceptual Disturbances: No Auditory hallucinations, No Visual hallucinations Attention Span Ability: Capable of Focused Attention Memory Description: Grossly Intact Patient Reliability: Reliable Historian Fund of knowledge: Yes abstraction ability, Yes aware of current events Intelligence Estimate: Average Judgment: Fair Insight: Partial Hospital Course Hospital course: Ms. Ricketts is a 22 year old female The patient was seen and had a resolution of suicidal ideation. She had been on the unit and participated in groups. It was willing to follow-up with her psychiatrist and is interested in getting counseling. 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 The patient's boyfriend was contacted regarding the safety the home. The patient has awareness of her options should she develop suicidal ideation. She is knowledgeable of local emergency facilities. The patient does not drive. She has an intractable seizure disorder but has not been able to get neurologic follow-up. Patient was able to tolerate the Depakote at 500 mg daily at bedtime but she weighs 122 pounds. She was encouraged to seek follow-up with a neurologist and a primary care physician. The patient was ready at the time discharge she communicated with her boyfriend. She identified positive aspects of her life including her children and stepchildren - Time Spent with Patient Total time spent providing and/or coordinating discharge services: Assessment and Plan - Patient/Caregiver Discharge Instructions Diet: regular diet - Follow up Plan Follow up with: [facility] [Outside] - 11/16/17 2:30 pm (The above appointment is with Dr. James for outpatient psychiatric assessment and medication management services. ) Overall status at discharge: Stable Disposition: Home, Self-Care Quality - Multiple Antipsychotics Patient discharged on 2 or more antipsychotic medications: No Procedures - Procedures Procedures: Medication Management, Crisis Stabilization, Supportive Therapy, Group Therapy, Psychoeducational Therapy
== END 2017-11-12 15:10 | disposition home or self-care (01) | DRG 753 ==
LOC: EMEROO 17:16 → SUATTDRO 21:31 → 1ANU 21:31
PROVIDERS: ADMIT General Practice; ATTEND Psychiatry & Neurology Forensic Psychiatry

== ENCOUNTER 2022-03-09 19:30 | Observation (INO) ==
[2022-03-09] MEDS ORDERED: Naloxone 0.4 MG/ML INJ IVP PRN ×2 (20:56→21:43)
[2022-03-09] MEDS ORDERED: Melatonin 3 MG TABLET PO PRN (20:56)
[2022-03-09] MEDS ORDERED: Ondansetron ODT 4 MG TAB.RAPDIS SL PRN (20:56)
[2022-03-09] MEDS ORDERED: Acetaminophen 325 MG TABLET PO PRN (21:43)
[2022-03-09 22:17] LABS: Hematocrit 39.5 % (35.3-44.9); Hemoglobin 13.4 g/dL (11.5-15.4); Mean Corpuscular HGB Conc 33.9 g/dL (31.6-35.5); Mean Corpuscular Hemoglobin 28.5 pg (28.0-33.3); Mean Platelet Volume 9.3 fL (9.4-12.4); Platelet Count 467 K/mcL (140-400); Red Cell Distribution Width 13.2 % (11.5-14.5); White Blood Count 13.9 K/mcL (4.3-11.1)
[2022-03-09 22:36] LABS: BUN/Creatinine Ratio 16 (6-26); Blood Urea Nitrogen 10 mg/dL (6-20); Calcium 10.4 mg/dL (8.6-10.3); Carbon Dioxide 21 mEq/L (23-29); Chloride 107 mEq/L (98-107); Glucose 140 mg/dL (70-105); Osmolality,Calculated 285 (280-300); Potassium 4.2 mEq/L (3.5-5.1); Sodium 137 mEq/L (136-145)
[2022-03-10 03:54] VITALS: BP 93/57; PULSE 67; TEMP 97.6; O2SAT 97
[2022-03-10 04:10] LABS: Hematocrit 39.6 % (35.3-44.9); Hemoglobin 13.1 g/dL (11.5-15.4); Mean Corpuscular HGB Conc 33.1 g/dL (31.6-35.5); Mean Corpuscular Hemoglobin 28.1 pg (28.0-33.3); Mean Corpuscular Volume 84.8 fL (83.0-100.0); Mean Platelet Volume 9.7 fL (9.4-12.4); Platelet Count 477 K/mcL (140-400); Red Blood Count 4.67 M/mcL (3.82-4.97); Red Cell Distribution Width 13.4 % (11.5-14.5)
[2022-03-10 04:36] LABS: BUN/Creatinine Ratio 16 (6-26); Blood Urea Nitrogen 11 mg/dL (6-20); Calcium 9.8 mg/dL (8.6-10.3); Carbon Dioxide 20 mEq/L (23-29); Chloride 106 mEq/L (98-107); Glucose 224 mg/dL (70-105); Osmolality,Calculated 286 (280-300); Phosphorous 2.1 mg/dL (2.7-4.5); Potassium 4.3 mEq/L (3.5-5.1); Sodium 135 mEq/L (136-145)
== END 2022-03-10 08:49 | disposition home or self-care (01) ==
LOC: 3BNU 19:30 → EMEROOARM 19:30 → SUATTDRO 21:10 → 3BNU 21:51
PROVIDERS: ADMIT Internal Medicine; ATTEND Family Medicine